=== PATIENT | female | born 1940 | race Caucasian/White ===

== ENCOUNTER → 2017-10-31 | Outpatient (CLI) | payer OTHER ==
[~2017-10-31] MED LIST: ACET325; ACET325 PO; ASCO500 PO; ASPI325EC PO; ATEN50 PO; ATOR40TA PO; Aspirin EC81 MG PO; Augmentin 875-1 EACH PO; CHOL10002 PO; CITA20 PO; CLOP75 PO; DECADRON0.5 MG PO; DEXA4 PO; ERGO400 PO; ESTR1; FURO20; Ferrous Sulfat325 MG PO; GABA100 PO; HORIZANT600 MG; HYDACE5 PO; HYDACE5325 PO; HYDR1TAB94 PO; IMODIUM A-D2 M1 PO; IRON18 MG PO; ISOMON20 PO; Klonopin0.5 MG PO; LEVSOD50 PO; LIDO700A20 TOP; LISI20; LISI5 PO; LOSA50 PO; LOSARTAN-HCTZ; LOSARTAN-HCTZ1 EAC1 PO; LOSARTAN-HCTZ1 EACH PO; MAGNESIUM OXID500 MG PO; METO25ER PO; MIRAPEX ER1.5 MG PO; MULVITMINF PO; NAPR220 PO; NITR.4SL SL; OMEP20ER PO; OMEPRAZOLE MAGN20 MG PO; PARO10; POTA10T PO; POTCHL10ER PO; PRAM.125; PRAM.5 PO; PRAV20 PO; ROPI5 PO; SENN187 PO; SPIR25 PO; SPIR50 PO; SYNTHROID0.2 MG PO; TORSE20 PO; Velcade3.5 MG INJ; Vitamin C100 M1 PO; Vitamin C1000 M1 PO; [UNRECOGNIZED DRUG - OTHER] PO
== END ==
LOC: LAB EV 12:53
DX: R30.0 Dysuria (principal)
CPT/HCPCS: 87077; 87086; 87186

== ENCOUNTER 2018-01-25 13:03 | Emergency (ER) | payer OTHER ==
[~2018-01-25] VITALS: Ht 165.1 cm; Wt 72.6 kg
[~2018-01-25 13:03] MED LIST changes: -ATOR40TA PO; -Aspirin EC81 MG PO; -CLOP75 PO; -DECADRON0.5 MG PO; -DEXA4 PO; -FURO20; -Ferrous Sulfat325 MG PO; -GABA100 PO; -IMODIUM A-D2 M1 PO; -ISOMON20 PO; -Klonopin0.5 MG PO; -MAGNESIUM OXID500 MG PO; -NITR.4SL SL; +OMEPRAZOLE MAGN20 MG; -OMEPRAZOLE MAGN20 MG PO; -POTA10T PO; -Velcade3.5 MG INJ; -Vitamin C100 M1 PO; -[UNRECOGNIZED DRUG - OTHER] PO
[2018-01-25 13:49] LABS: BASOPHILS ABSOLUTE AUTO 0.01 K/mm3 (0.00-0.23); BASOPHILS PERCENT AUTO 0 % (0-2); EOSINOPHILS ABSOLUTE AUTO 0.01 K/mm3 (0.00-0.68); EOSINOPHILS PERCENT AUTO 0 % (0-6); Hematocrit 29.9 % (33.0-51.0); Hemoglobin 9.2 g/dL (11.5-16.0); IMMATURE GRAN PERCENT AUTO 0 % (0-1); LYMPHOCYTES ABSOLUTE AUTO 0.81 K/mm3 (0.84-5.20); LYMPHOCYTES PERCENT AUTO 20 % (21-46); MONOCYTES ABSOLUTE AUTO 0.42 K/mm3 (0.16-1.47); MONOCYTES PERCENT AUTO 10 % (4-13); Mean Corpuscular HGB 30.3 pg (26.0-34.0); Mean Corpuscular HGB Conc 30.8 g/dL (31.5-36.5); Mean Corpuscular Volume 98 fL (80-100); Mean Platelet Volume 9.4 fL (9.1-12.4); NEUTROPHILS ABSOLUTE AUTO 2.89 K/mm3 (1.96-9.15); NEUTROPHILS PERCENT AUTO 70 % (41-73); Platelet Count 138 K/mm3 (150-400); RDW Coefficient Variation 15.1 % (11.7-14.2); RDW Standard Deviation 53.1 fL (35.1-46.3); Red Blood Cell Count 3.04 M/mm3 (3.80-5.20); White Blood Cell Count 4.14 K/mm3 (4.00-11.30)
[2018-01-25 14:00] LABS: International Normalized Ratio 1.05; Prothrombin Time Results 10.9 Sec (9.7-11.5)
[2018-01-25 14:13] LABS: Alanine Aminotransfer (ALT/SGP 29 U/L (12-78); Albumin, Blood 3.5 g/dL (3.4-5.0); Albumin/Globulin Ratio 0.8 (0.8-1.8); Alk Phos 74 U/L (50-136); Anion Gap 4 mmol/L (6-16); Aspartate Aminotrans (AST/SGOT 24 U/L (12-37); Bilirubin, Total 0.3 mg/dL (0.1-1.0); Blood Urea Nitrogen 36 mg/dL (8-24); Bun/Creatinine Ratio 27.7 (12.0-20.0); CO2, Blood 28 mmol/L (21-32); Calcium, Blood 8.7 mg/dL (8.5-10.1); Chloride, Blood 111 mmol/L (98-108); Globulin, Blood 4.5 g/dL (2.2-4.0); Glomerular Filtration Rate 42 (60-); Glucose, Blood 121 mg/dL (70-99); Potassium, Blood 3.7 mmol/L (3.5-5.5); Sodium, Blood 143 mmol/L (136-145); Troponin I <0.015 ng/mL (0.000-0.040)
== END 2018-01-25 16:45 | disposition home or self-care (01) ==
LOC: ER 13:03
PROVIDERS: Emergency Medicine
DX: I25.10 Atherosclerotic heart disease of native coronary artery without angina pectoris (principal); I10 Essential (primary) hypertension; G47.30 Sleep apnea, unspecified; G25.81 Restless legs syndrome; I49.3 Ventricular premature depolarization; Z79.82 Long term (current) use of aspirin; Z79.899 Other long term (current) drug therapy; Z90.710 Acquired absence of both cervix and uterus; Z95.1 Presence of aortocoronary bypass graft; Z98.1 Arthrodesis status; Z98.890 Other specified postprocedural states
CPT/HCPCS: 36415; 71045; 80053; 83880; 84484; 85025; 85610; 85730; 93005; 93010; 96374; 99284; C9113

== ENCOUNTER → 2018-02-15 | Outpatient (CLI) | payer OTHER | END | disposition home or self-care (01) | LOC: LAB SHORT 10:10 → PLD 10:10 | DX: L70.0 Acne vulgaris (principal); B07.9 Viral wart, unspecified | CPT/HCPCS: 88305 ==

== ENCOUNTER 2018-04-18 00:39 | Emergency (ER) | payer OTHER ==
[~2018-04-18] VITALS: Ht 154.9 cm; Wt 71.7 kg
[2018-04-18 02:09] LABS: BASOPHILS ABSOLUTE AUTO 0.01 K/mm3 (0.00-0.23); BASOPHILS PERCENT AUTO 0 % (0-2); EOSINOPHILS PERCENT AUTO 0 % (0-6); IMMATURE GRAN ABSOLUTE AUTO 0.01 K/mm3 (0.00-0.10); IMMATURE GRAN PERCENT AUTO 0 % (0-1); LYMPHOCYTES ABSOLUTE AUTO 0.85 K/mm3 (0.84-5.20); LYMPHOCYTES PERCENT AUTO 28 % (21-46); MONOCYTES ABSOLUTE AUTO 0.45 K/mm3 (0.16-1.47); MONOCYTES PERCENT AUTO 15 % (4-13); Mean Corpuscular HGB 32.3 pg (26.0-34.0); Mean Corpuscular Volume 104 fL (80-100); NEUTROPHILS ABSOLUTE AUTO 1.72 K/mm3 (1.96-9.15); NEUTROPHILS PERCENT AUTO 57 % (41-73); Platelet Count 157 K/mm3 (150-400); RDW Coefficient Variation 15.3 % (11.7-14.2); RDW Standard Deviation 58.4 fL (35.1-46.3); Red Blood Cell Count 2.79 M/mm3 (3.80-5.20); White Blood Cell Count 3.04 K/mm3 (4.00-11.30)
[2018-04-18 02:23] LABS: Alanine Aminotransfer (ALT/SGP 24 U/L (12-78); Albumin, Blood 3.5 g/dL (3.4-5.0); Albumin/Globulin Ratio 0.9 (0.8-1.8); Alk Phos 83 U/L (50-136); Anion Gap 6 mmol/L (6-16); Aspartate Aminotrans (AST/SGOT 20 U/L (12-37); Bilirubin, Total 0.2 mg/dL (0.1-1.0); Blood Urea Nitrogen 39 mg/dL (8-24); Bun/Creatinine Ratio 25.8 (12.0-20.0); CO2, Blood 28 mmol/L (21-32); Calcium, Blood 8.5 mg/dL (8.5-10.1); Chloride, Blood 109 mmol/L (98-108); Creatinine, Blood 1.51 mg/dL (0.40-1.00); Globulin, Blood 4.1 g/dL (2.2-4.0); Glomerular Filtration Rate 35 (60-); Glucose, Blood 97 mg/dL (70-99); Potassium, Blood 4.2 mmol/L (3.5-5.5); Sodium, Blood 143 mmol/L (136-145); Total Protein, Blood 7.6 g/dL (6.4-8.2); Troponin I <0.015 ng/mL (0.000-0.040)
== END 2018-04-18 03:35 | disposition home or self-care (01) ==
LOC: ER 00:39
PROVIDERS: Emergency Medicine
DX: I12.9 Hypertensive chronic kidney disease with stage 1 through stage 4 chronic kidney disease, or unspecified chronic kidney disease (principal); N18.9 Chronic kidney disease, unspecified; D53.9 Nutritional anemia, unspecified; Z79.899 Other long term (current) drug therapy; Z79.82 Long term (current) use of aspirin
CPT/HCPCS: 36415; 71046; 80053; 83880; 84484; 85025; 93005; 93010; 99284

== ENCOUNTER 2018-06-12 05:49 | Inpatient (IN) | payer OTHER ==
[~2018-06-12] VITALS: Ht 162.6 cm; Wt 74.4 kg
[~2018-06-12 05:49] MED LIST changes: -OMEPRAZOLE MAGN20 MG; +OMEPRAZOLE MAGN20 MG PO
[2018-06-12] MEDS ORDERED: GABA100 PO (06:03)
[2018-06-12] MEDS ORDERED: DECADRON0.5 MG PO (06:04)
[2018-06-12 06:08] LABS: BASOPHILS PERCENT AUTO 0 % (0-2); EOSINOPHILS PERCENT AUTO 0 % (0-6); Hematocrit 25.2 % (33.0-51.0); Hemoglobin 7.6 g/dL (11.5-16.0); IMMATURE GRAN ABSOLUTE AUTO 0.02 K/mm3 (0.00-0.10); IMMATURE GRAN PERCENT AUTO 0 % (0-1); LYMPHOCYTES ABSOLUTE AUTO 0.45 K/mm3 (0.84-5.20); LYMPHOCYTES PERCENT AUTO 9 % (21-46); MONOCYTES ABSOLUTE AUTO 0.25 K/mm3 (0.16-1.47); MONOCYTES PERCENT AUTO 5 % (4-13); Mean Corpuscular HGB 31.7 pg (26.0-34.0); Mean Corpuscular HGB Conc 30.2 g/dL (31.5-36.5); Mean Corpuscular Volume 105 fL (80-100); NEUTROPHILS ABSOLUTE AUTO 4.24 K/mm3 (1.96-9.15); NEUTROPHILS PERCENT AUTO 86 % (41-73); Platelet Count 149 K/mm3 (150-400); RDW Coefficient Variation 16.5 % (11.7-14.2); RDW Standard Deviation 63.3 fL (35.1-46.3); White Blood Cell Count 4.96 K/mm3 (4.00-11.30)
[2018-06-12 06:28] LABS: Alanine Aminotransfer (ALT/SGP 25 U/L (12-78); Albumin, Blood 3.3 g/dL (3.4-5.0); Albumin/Globulin Ratio 0.8 (0.8-1.8); Alk Phos 80 U/L (50-136); Anion Gap 10 mmol/L (6-16); Aspartate Aminotrans (AST/SGOT 24 U/L (12-37); Bilirubin, Total 0.2 mg/dL (0.1-1.0); Blood Urea Nitrogen 51 mg/dL (8-24); Bun/Creatinine Ratio 44.7 (12.0-20.0); CO2, Blood 21 mmol/L (21-32); Calcium, Blood 8.6 mg/dL (8.5-10.1); Chloride, Blood 112 mmol/L (98-108); Creatinine, Blood 1.14 mg/dL (0.40-1.00); Globulin, Blood 4.4 g/dL (2.2-4.0); Glomerular Filtration Rate 49 (60-); Glucose, Blood 183 mg/dL (70-99); Sodium, Blood 143 mmol/L (136-145); Total Protein, Blood 7.7 g/dL (6.4-8.2); Troponin I <0.015 ng/mL (0.000-0.040)
[2018-06-12] MEDS ORDERED: Aspirin EC81 MG PO (10:12)
[2018-06-12] MEDS ORDERED: Klonopin0.5 MG PO (10:15)
[2018-06-12] MEDS ORDERED: Ferrous Sulfat325 MG PO (10:16)
[2018-06-12] MEDS ORDERED: IMODIUM A-D2 M1 PO (10:17)
[2018-06-12] MEDS ORDERED: DEXA4 PO (10:23)
[2018-06-12] MEDS ORDERED: Velcade3.5 MG INJ (10:24)
[2018-06-12 16:55] LABS: BASOPHILS PERCENT AUTO 0 % (0-2); EOSINOPHILS PERCENT AUTO 0 % (0-6); Hematocrit 23.6 % (33.0-51.0); Hemoglobin 7.5 g/dL (11.5-16.0); IMMATURE GRAN ABSOLUTE AUTO 0.03 K/mm3 (0.00-0.10); IMMATURE GRAN PERCENT AUTO 0 % (0-1); LYMPHOCYTES ABSOLUTE AUTO 0.64 K/mm3 (0.84-5.20); LYMPHOCYTES PERCENT AUTO 8 % (21-46); MONOCYTES ABSOLUTE AUTO 0.97 K/mm3 (0.16-1.47); MONOCYTES PERCENT AUTO 11 % (4-13); Mean Corpuscular HGB 32.5 pg (26.0-34.0); Mean Corpuscular HGB Conc 31.8 g/dL (31.5-36.5); Mean Platelet Volume 10.4 fL (9.1-12.4); NEUTROPHILS ABSOLUTE AUTO 6.89 K/mm3 (1.96-9.15); NEUTROPHILS PERCENT AUTO 81 % (41-73); Platelet Count 127 K/mm3 (150-400); RDW Coefficient Variation 17.4 % (11.7-14.2); RDW Standard Deviation 64.7 fL (35.1-46.3); Red Blood Cell Count 2.31 M/mm3 (3.80-5.20); White Blood Cell Count 8.53 K/mm3 (4.00-11.30)
[2018-06-12 16:56] LABS: Mean Corpuscular Volume 102 fL (80-100)
[2018-06-12 18:55] LABS: International Normalized Ratio 1.06; Prothrombin Time Results 10.9 Sec (9.7-11.5)
[2018-06-13 00:53] LABS: BASOPHILS ABSOLUTE AUTO 0.01 K/mm3 (0.00-0.23); BASOPHILS PERCENT AUTO 0 % (0-2); EOSINOPHILS PERCENT AUTO 0 % (0-6); Hematocrit 24.1 % (33.0-51.0); Hemoglobin 7.8 g/dL (11.5-16.0); IMMATURE GRAN ABSOLUTE AUTO 0.03 K/mm3 (0.00-0.10); IMMATURE GRAN PERCENT AUTO 0 % (0-1); LYMPHOCYTES ABSOLUTE AUTO 1.06 K/mm3 (0.84-5.20); LYMPHOCYTES PERCENT AUTO 14 % (21-46); MONOCYTES ABSOLUTE AUTO 0.75 K/mm3 (0.16-1.47); MONOCYTES PERCENT AUTO 10 % (4-13); Mean Corpuscular HGB 31.2 pg (26.0-34.0); Mean Corpuscular HGB Conc 32.4 g/dL (31.5-36.5); Mean Corpuscular Volume 96 fL (80-100); Mean Platelet Volume 9.5 fL (9.1-12.4); NEUTROPHILS ABSOLUTE AUTO 5.62 K/mm3 (1.96-9.15); NEUTROPHILS PERCENT AUTO 75 % (41-73); Platelet Count 104 K/mm3 (150-400); RDW Coefficient Variation 18.8 % (11.7-14.2); RDW Standard Deviation 66.4 fL (35.1-46.3); White Blood Cell Count 7.47 K/mm3 (4.00-11.30)
[2018-06-13 01:17] LABS: Albumin, Blood 2.6 g/dL (3.4-5.0); Albumin/Globulin Ratio 0.8 (0.8-1.8); Bilirubin, Total 1.1 mg/dL (0.1-1.0); Calcium, Blood 7.8 mg/dL (8.5-10.1); Creatinine, Blood 1.34 mg/dL (0.40-1.00); Globulin, Blood 3.3 g/dL (2.2-4.0); Total Protein, Blood 5.9 g/dL (6.4-8.2)
[2018-06-13 01:22] LABS: Troponin I 1.6 ng/mL (0.000-0.040)
[2018-06-13 07:10] LABS: BASOPHILS ABSOLUTE AUTO 0.01 K/mm3 (0.00-0.23); BASOPHILS PERCENT AUTO 0 % (0-2); EOSINOPHILS PERCENT AUTO 0 % (0-6); Hemoglobin 9.9 g/dL (11.5-16.0); IMMATURE GRAN ABSOLUTE AUTO 0.03 K/mm3 (0.00-0.10); IMMATURE GRAN PERCENT AUTO 0 % (0-1); LYMPHOCYTES ABSOLUTE AUTO 1.27 K/mm3 (0.84-5.20); LYMPHOCYTES PERCENT AUTO 18 % (21-46); MONOCYTES ABSOLUTE AUTO 0.57 K/mm3 (0.16-1.47); MONOCYTES PERCENT AUTO 8 % (4-13); Mean Corpuscular HGB 31.5 pg (26.0-34.0); Mean Corpuscular Volume 96 fL (80-100); Mean Platelet Volume 11.2 fL (9.1-12.4); NEUTROPHILS PERCENT AUTO 74 % (41-73); Platelet Count 133 K/mm3 (150-400); RDW Coefficient Variation 18.6 % (11.7-14.2); RDW Standard Deviation 65.1 fL (35.1-46.3); Red Blood Cell Count 3.14 M/mm3 (3.80-5.20); White Blood Cell Count 7.08 K/mm3 (4.00-11.30)
[2018-06-13 08:09] LABS: Bun/Creatinine Ratio 38.7 (12.0-20.0); Creatinine, Blood 1.24 mg/dL (0.40-1.00); Potassium, Blood 3.8 mmol/L (3.5-5.5)
[2018-06-13 14:21] LABS: Hematocrit 30.9 % (33.0-51.0); Hemoglobin 10.1 g/dL (11.5-16.0)
[2018-06-14 04:30] LABS: BASOPHILS ABSOLUTE AUTO 0.01 K/mm3 (0.00-0.23); BASOPHILS PERCENT AUTO 0 % (0-2); EOSINOPHILS PERCENT AUTO 0 % (0-6); Hematocrit 29.6 % (33.0-51.0); Hemoglobin 9.6 g/dL (11.5-16.0); IMMATURE GRAN ABSOLUTE AUTO 0.01 K/mm3 (0.00-0.10); IMMATURE GRAN PERCENT AUTO 0 % (0-1); LYMPHOCYTES ABSOLUTE AUTO 1.08 K/mm3 (0.84-5.20); LYMPHOCYTES PERCENT AUTO 21 % (21-46); MONOCYTES ABSOLUTE AUTO 0.66 K/mm3 (0.16-1.47); MONOCYTES PERCENT AUTO 13 % (4-13); Mean Corpuscular HGB 31.4 pg (26.0-34.0); Mean Corpuscular HGB Conc 32.4 g/dL (31.5-36.5); Mean Corpuscular Volume 97 fL (80-100); Mean Platelet Volume 10.3 fL (9.1-12.4); NEUTROPHILS ABSOLUTE AUTO 3.46 K/mm3 (1.96-9.15); NEUTROPHILS PERCENT AUTO 66 % (41-73); Platelet Count 109 K/mm3 (150-400); RDW Coefficient Variation 17.8 % (11.7-14.2); RDW Standard Deviation 63.2 fL (35.1-46.3); Red Blood Cell Count 3.06 M/mm3 (3.80-5.20); White Blood Cell Count 5.22 K/mm3 (4.00-11.30)
[2018-06-14 04:54] LABS: Bun/Creatinine Ratio 27.3 (12.0-20.0); Calcium, Blood 7.8 mg/dL (8.5-10.1); Creatinine, Blood 1.32 mg/dL (0.40-1.00); Potassium, Blood 4.1 mmol/L (3.5-5.5)
[2018-06-14 05:05] LABS: Troponin I 0.918 ng/mL (0.000-0.040)
[2018-06-14 09:06] LABS: Stool Occult Blood Guaiac 1 Pos (Neg)
[2018-06-14 09:12] LABS: Stool Occult Blood Guaiac 2 Pos (Neg)
[2018-06-14 10:36] LABS: Stool Occult Blood Guaiac 1 Pos (Neg)
[2018-06-14 10:37] LABS: Stool Occult Blood Guaiac 2 Pos (Neg); Stool Occult Blood Guaiac 3 Pos (Neg)
[2018-06-14] MEDS ORDERED: ACET325 PO (14:55)
[2018-06-14] MEDS ORDERED: NITR.4SL SL (14:56)
== END 2018-06-14 15:41 | disposition home or self-care (01) | DRG 378 ==
LOC: ER 05:49 → PCU 07:48
PROVIDERS: Emergency Medicine; Family Medicine; Internal Medicine; Internal Medicine Gastroenterology; Nurse Practitioner Acute Care
PROC: 30233N1 Transfusion of Nonautologous Red Blood Cells into Peripheral Vein, Percutaneous Approach (ICD-10-PCS; 2018-06-12)
PROC: 0W3P8ZZ Control Bleeding in Gastrointestinal Tract, Via Natural or Artificial Opening Endoscopic (ICD-10-PCS; principal; 2018-06-13 13:30)
DX: K31.811 Angiodysplasia of stomach and duodenum with bleeding (principal); C90.00 Multiple myeloma not having achieved remission; I25.119 Atherosclerotic heart disease of native coronary artery with unspecified angina pectoris; D63.0 Anemia in neoplastic disease; D46.9 Myelodysplastic syndrome, unspecified; I12.9 Hypertensive chronic kidney disease with stage 1 through stage 4 chronic kidney disease, or unspecified chronic kidney disease; N18.3 Chronic kidney disease, stage 3 (moderate); K22.8 Other specified diseases of esophagus; I35.0 Nonrheumatic aortic (valve) stenosis; I48.0 Paroxysmal atrial fibrillation; E78.5 Hyperlipidemia, unspecified; G25.81 Restless legs syndrome; G47.33 Obstructive sleep apnea (adult) (pediatric); I25.2 Old myocardial infarction; Z86.74 Personal history of sudden cardiac arrest; Z79.1 Long term (current) use of non-steroidal anti-inflammatories (NSAID); Z79.82 Long term (current) use of aspirin; Z79.899 Other long term (current) drug therapy
CPT/HCPCS: 36415; 36430; 71046; 80048; 80053; 82272; 84484; 85014; 85018; 85025; 85610; 86850; 86900; 86901; 86922; 93005; 93010; 94762; 99285-25; C1751; C9113; J7120; P9016

== ENCOUNTER 2018-07-03 07:19 | Inpatient (IN) | payer OTHER ==
[~2018-07-03] VITALS: Ht 157.5 cm; Wt 78.8 kg
[~2018-07-03 07:19] MED LIST changes: +Aspirin EC81 MG PO; +DECADRON0.5 MG PO; +DEXA4 PO; +Ferrous Sulfat325 MG PO; +GABA100 PO; +IMODIUM A-D2 M1 PO; +Klonopin0.5 MG PO; +NITR.4SL SL; +Velcade3.5 MG INJ
[2018-07-03 07:52] LABS: BASOPHILS ABSOLUTE AUTO 0.01 K/mm3 (0.00-0.23); BASOPHILS PERCENT AUTO 0 % (0-2); EOSINOPHILS PERCENT AUTO 0 % (0-6); Hematocrit 30.2 % (33.0-51.0); Hemoglobin 9.3 g/dL (11.5-16.0); IMMATURE GRAN ABSOLUTE AUTO 0.08 K/mm3 (0.00-0.10); IMMATURE GRAN PERCENT AUTO 1 % (0-1); LYMPHOCYTES ABSOLUTE AUTO 0.57 K/mm3 (0.84-5.20); LYMPHOCYTES PERCENT AUTO 8 % (21-46); MONOCYTES ABSOLUTE AUTO 0.28 K/mm3 (0.16-1.47); MONOCYTES PERCENT AUTO 4 % (4-13); Mean Corpuscular HGB 31.5 pg (26.0-34.0); Mean Corpuscular HGB Conc 30.8 g/dL (31.5-36.5); Mean Corpuscular Volume 102 fL (80-100); Mean Platelet Volume 10.4 fL (9.1-12.4); NEUTROPHILS ABSOLUTE AUTO 6.09 K/mm3 (1.96-9.15); NEUTROPHILS PERCENT AUTO 87 % (41-73); Platelet Count 170 K/mm3 (150-400); RDW Coefficient Variation 16.8 % (11.7-14.2); RDW Standard Deviation 60.6 fL (35.1-46.3); Red Blood Cell Count 2.95 M/mm3 (3.80-5.20); White Blood Cell Count 7.03 K/mm3 (4.00-11.30)
[2018-07-03] MEDS ORDERED: Vitamin C100 M1 PO (07:55)
[2018-07-03] MEDS ORDERED: DEXA4 PO (07:55)
[2018-07-03 08:16] LABS: Troponin I <0.015 ng/mL (0.000-0.040)
[2018-07-03 08:19] LABS: Alanine Aminotransfer (ALT/SGP 38 U/L (12-78); Albumin, Blood 3.6 g/dL (3.4-5.0); Albumin/Globulin Ratio 0.9 (0.8-1.8); Alk Phos 109 U/L (50-136); Anion Gap 9 mmol/L (6-16); Aspartate Aminotrans (AST/SGOT 33 U/L (12-37); Bilirubin, Total 0.4 mg/dL (0.1-1.0); Blood Urea Nitrogen 50 mg/dL (8-24); CO2, Blood 24 mmol/L (21-32); Calcium, Blood 8.8 mg/dL (8.5-10.1); Chloride, Blood 111 mmol/L (98-108); Creatinine, Blood 1.35 mg/dL (0.40-1.00); Globulin, Blood 4.2 g/dL (2.2-4.0); Glomerular Filtration Rate 40 (60-); Glucose, Blood 204 mg/dL (70-99); Potassium, Blood 3.5 mmol/L (3.5-5.5); Sodium, Blood 144 mmol/L (136-145); Total Protein, Blood 7.8 g/dL (6.4-8.2)
[2018-07-03] MEDS ORDERED: [UNRECOGNIZED DRUG - OTHER] PO (10:23)
[2018-07-04 06:17] LABS: BASOPHILS PERCENT AUTO 0 % (0-2); EOSINOPHILS PERCENT AUTO 0 % (0-6); Hematocrit 24.4 % (33.0-51.0); Hemoglobin 7.5 g/dL (11.5-16.0); IMMATURE GRAN ABSOLUTE AUTO 0.04 K/mm3 (0.00-0.10); IMMATURE GRAN PERCENT AUTO 1 % (0-1); LYMPHOCYTES ABSOLUTE AUTO 1.12 K/mm3 (0.84-5.20); LYMPHOCYTES PERCENT AUTO 14 % (21-46); MONOCYTES ABSOLUTE AUTO 0.64 K/mm3 (0.16-1.47); MONOCYTES PERCENT AUTO 8 % (4-13); Mean Corpuscular HGB 31.1 pg (26.0-34.0); Mean Corpuscular HGB Conc 30.7 g/dL (31.5-36.5); Mean Corpuscular Volume 101 fL (80-100); Mean Platelet Volume 10.3 fL (9.1-12.4); NEUTROPHILS PERCENT AUTO 78 % (41-73); Platelet Count 134 K/mm3 (150-400); RDW Coefficient Variation 16.8 % (11.7-14.2); RDW Standard Deviation 61.1 fL (35.1-46.3); Red Blood Cell Count 2.41 M/mm3 (3.80-5.20)
[2018-07-04 06:40] LABS: Anion Gap 7 mmol/L (6-16); Blood Urea Nitrogen 57 mg/dL (8-24); Bun/Creatinine Ratio 38.8 (12.0-20.0); CHOL/HDL RATIO 2.6; CO2, Blood 26 mmol/L (21-32); Calcium, Blood 7.8 mg/dL (8.5-10.1); Chloride, Blood 112 mmol/L (98-108); Cholesterol 128 mg/dL (50-200); Creatinine, Blood 1.47 mg/dL (0.40-1.00); Glomerular Filtration Rate 36 (60-); Glucose, Blood 90 mg/dL (70-99); HDL Cholesterol 49 mg/dL (>39); LDL/HDL RATIO 1.4; Low Density Lipoprotein Chol 69 mg/dL (0-110); Potassium, Blood 3.9 mmol/L (3.5-5.5); Sodium, Blood 145 mmol/L (136-145); Triglycerides 52 mg/dL (30-160); Very Low Density Lipoprot Chol 10 mg/dL (6-32)
[2018-07-04 20:21] LABS: Hematocrit 35.3 % (33.0-51.0); Hemoglobin 11.1 g/dL (11.5-16.0)
== END 2018-07-05 13:15 | disposition home or self-care (01) | DRG 280 ==
LOC: ER 07:19 → PCU 09:07 → ER 09:54 → PCU 10:02
PROVIDERS: Internal Medicine; Physician Assistant
DX: I13.0 Hypertensive heart and chronic kidney disease with heart failure and stage 1 through stage 4 chronic kidney disease, or unspecified chronic kidney disease (principal); I21.4 Non-ST elevation (NSTEMI) myocardial infarction; I50.33 Acute on chronic diastolic (congestive) heart failure; D60.0 Chronic acquired pure red cell aplasia; D62 Acute posthemorrhagic anemia; Z95.1 Presence of aortocoronary bypass graft; I25.2 Old myocardial infarction; G25.81 Restless legs syndrome; E78.5 Hyperlipidemia, unspecified; D46.9 Myelodysplastic syndrome, unspecified; N18.3 Chronic kidney disease, stage 3 (moderate); G47.33 Obstructive sleep apnea (adult) (pediatric); E03.9 Hypothyroidism, unspecified; K21.9 Gastro-esophageal reflux disease without esophagitis; I25.10 Atherosclerotic heart disease of native coronary artery without angina pectoris; Q27.33 Arteriovenous malformation of digestive system vessel
CPT/HCPCS: 36415; 36430; 71045; 78452; 80048; 80053; 80061; 83880; 84484; 85014; 85018; 85025; 86850; 86870; 86900; 86901; 86922; 93005; 93010; 93017; 93308; 96374; 99285-25; A9500; J0706; J1644; J1940; J2270; J2785; P9016

== ENCOUNTER → 2018-07-29 | Outpatient (CLI) | payer OTHER ==
[~2018-07-29] MED LIST changes: +Vitamin C100 M1 PO; +[UNRECOGNIZED DRUG - OTHER] PO
[2018-07-29 11:13] LABS: BASOPHILS ABSOLUTE AUTO 0.01 K/mm3 (0.00-0.23); BASOPHILS PERCENT AUTO 0 % (0-2); EOSINOPHILS PERCENT AUTO 0 % (0-6); Hematocrit 25.5 % (33.0-51.0); Hemoglobin 8.2 g/dL (11.5-16.0); IMMATURE GRAN ABSOLUTE AUTO 0.01 K/mm3 (0.00-0.10); IMMATURE GRAN PERCENT AUTO 0 % (0-1); LYMPHOCYTES ABSOLUTE AUTO 0.35 K/mm3 (0.84-5.20); LYMPHOCYTES PERCENT AUTO 12 % (21-46); MONOCYTES ABSOLUTE AUTO 0.61 K/mm3 (0.16-1.47); MONOCYTES PERCENT AUTO 22 % (4-13); Mean Corpuscular HGB 29.6 pg (26.0-34.0); Mean Corpuscular HGB Conc 32.2 g/dL (31.5-36.5); Mean Corpuscular Volume 92 fL (80-100); Mean Platelet Volume 9.8 fL (9.1-12.4); NEUTROPHILS ABSOLUTE AUTO 1.86 K/mm3 (1.96-9.15); NEUTROPHILS PERCENT AUTO 65 % (41-73); Platelet Count 104 K/mm3 (150-400); RDW Coefficient Variation 15.5 % (11.7-14.2); RDW Standard Deviation 51.8 fL (35.1-46.3); Red Blood Cell Count 2.77 M/mm3 (3.80-5.20); White Blood Cell Count 2.84 K/mm3 (4.00-11.30)
[2018-07-29 11:23] LABS: Albumin, Blood 2.8 g/dL (3.4-5.0); Albumin/Globulin Ratio 0.8 (0.8-1.8); Bilirubin, Total 0.3 mg/dL (0.1-1.0); Bun/Creatinine Ratio 20.3 (12.0-20.0); Calcium, Blood 7.8 mg/dL (8.5-10.1); Creatinine, Blood 2.36 mg/dL (0.40-1.00); Globulin, Blood 3.4 g/dL (2.2-4.0); Potassium, Blood 3.7 mmol/L (3.5-5.5); Total Protein, Blood 6.2 g/dL (6.4-8.2)
== END | disposition home or self-care (01) ==
LOC: LAB EV 11:08 → LAB SHORT 11:08
PROVIDERS: Physician Assistant
DX: C90.00 Multiple myeloma not having achieved remission (principal); R06.02 Shortness of breath; D50.9 Iron deficiency anemia, unspecified; N18.9 Chronic kidney disease, unspecified; D63.1 Anemia in chronic kidney disease; D72.819 Decreased white blood cell count, unspecified; D63.0 Anemia in neoplastic disease
CPT/HCPCS: 80053; 83880; 85025

== ENCOUNTER 2018-07-31 13:36 | Day surgery (SDC) | payer OTHER ==
[2018-07-30 15:50] LABS: BASOPHILS ABSOLUTE AUTO 0.01 K/mm3 (0.00-0.23); BASOPHILS PERCENT AUTO 0 % (0-2); EOSINOPHILS PERCENT AUTO 0 % (0-6); Hematocrit 27.1 % (33.0-51.0); Hemoglobin 8.4 g/dL (11.5-16.0); IMMATURE GRAN PERCENT AUTO 0 % (0-1); LYMPHOCYTES ABSOLUTE AUTO 0.58 K/mm3 (0.84-5.20); LYMPHOCYTES PERCENT AUTO 21 % (21-46); MONOCYTES ABSOLUTE AUTO 0.58 K/mm3 (0.16-1.47); MONOCYTES PERCENT AUTO 21 % (4-13); Mean Corpuscular HGB 29.4 pg (26.0-34.0); NEUTROPHILS ABSOLUTE AUTO 1.55 K/mm3 (1.96-9.15); NEUTROPHILS PERCENT AUTO 57 % (41-73); Platelet Count 94 K/mm3 (150-400); RDW Coefficient Variation 15.1 % (11.7-14.2); RDW Standard Deviation 52.7 fL (35.1-46.3); Red Blood Cell Count 2.86 M/mm3 (3.80-5.20); White Blood Cell Count 2.72 K/mm3 (4.00-11.30)
[2018-07-30 15:52] LABS: Mean Corpuscular Volume 95 fL (80-100)
[2018-07-30 16:05] LABS: Albumin, Blood 2.9 g/dL (3.4-5.0); Albumin/Globulin Ratio 0.8 (0.8-1.8); Bilirubin, Total 0.3 mg/dL (0.1-1.0); Bun/Creatinine Ratio 23.8 (12.0-20.0); Calcium, Blood 8.2 mg/dL (8.5-10.1); Creatinine, Blood 2.06 mg/dL (0.40-1.00); Globulin, Blood 3.6 g/dL (2.2-4.0); Potassium, Blood 3.5 mmol/L (3.5-5.5); Total Protein, Blood 6.5 g/dL (6.4-8.2)
[2018-08-02 15:08] LABS: A/G RATIO 1.1 (0.7-1.7); ALPHA-1-GLOBULIN 0.3 g/dL (0.0-0.4); ALPHA-2-GLOBULIN 0.9 g/dL (0.4-1.0); BETA GLOBULIN 0.8 g/dL (0.7-1.3); GAMMA GLOBULIN 0.9 g/dL (0.4-1.8); GLOBULIN, TOTAL 2.9 g/dL (2.2-3.9); IMMUNOGLOBULIN A, QN, SERUM 80 mg/dL (64-422); IMMUNOGLOBULIN G, QN, SERUM 879 mg/dL (700-1600); IMMUNOGLOBULIN M, QN, SERUM 41 mg/dL (26-217); M-SPIKE 0.2 g/dL (Not Observed); PROTEIN, TOTAL, SERUM 5.9 g/dL (6.0-8.5)
== END 2018-07-31 22:41 | disposition home or self-care (01) ==
LOC: ATC 13:36 → EDSTATUS 07-30 12:35 → LAB FUT 07-30 12:35
PROVIDERS: Internal Medicine Hematology & Oncology
DX: C90.00 Multiple myeloma not having achieved remission (principal); D63.1 Anemia in chronic kidney disease; N18.9 Chronic kidney disease, unspecified; I12.9 Hypertensive chronic kidney disease with stage 1 through stage 4 chronic kidney disease, or unspecified chronic kidney disease; D72.819 Decreased white blood cell count, unspecified
CPT/HCPCS: 36415; 36430; 80053; 82784; 84165; 85025; 86334; 86850; 86900; 86901; 86922; J7050; P9016

== ENCOUNTER 2018-08-04 13:46 | Emergency (ER) | payer OTHER ==
[~2018-08-04] VITALS: Ht 160 cm; Wt 78.9 kg
[2018-08-04 14:48] LABS: BASOPHILS ABSOLUTE AUTO 0.01 K/mm3 (0.00-0.23); BASOPHILS PERCENT AUTO 0 % (0-2); EOSINOPHILS PERCENT AUTO 0 % (0-6); Hematocrit 28.7 % (33.0-51.0); Hemoglobin 9.2 g/dL (11.5-16.0); IMMATURE GRAN ABSOLUTE AUTO 0.01 K/mm3 (0.00-0.10); IMMATURE GRAN PERCENT AUTO 0 % (0-1); LYMPHOCYTES ABSOLUTE AUTO 0.62 K/mm3 (0.84-5.20); LYMPHOCYTES PERCENT AUTO 20 % (21-46); MONOCYTES ABSOLUTE AUTO 0.74 K/mm3 (0.16-1.47); MONOCYTES PERCENT AUTO 23 % (4-13); Mean Corpuscular HGB 29.1 pg (26.0-34.0); Mean Corpuscular HGB Conc 32.1 g/dL (31.5-36.5); Mean Corpuscular Volume 91 fL (80-100); Mean Platelet Volume 10.9 fL (9.1-12.4); NEUTROPHILS ABSOLUTE AUTO 1.78 K/mm3 (1.96-9.15); NEUTROPHILS PERCENT AUTO 56 % (41-73); Platelet Count 144 K/mm3 (150-400); RDW Coefficient Variation 14.9 % (11.7-14.2); Red Blood Cell Count 3.16 M/mm3 (3.80-5.20); White Blood Cell Count 3.16 K/mm3 (4.00-11.30)
[2018-08-04] MEDS ORDERED: ATOR40TA PO (14:51)
[2018-08-04] MEDS ORDERED: CLOP75 PO (14:52)
[2018-08-04] MEDS ORDERED: ISOMON20 PO (14:52)
[2018-08-04 14:54] LABS: Alanine Aminotransfer (ALT/SGP 24 U/L (12-78); Albumin, Blood 2.8 g/dL (3.4-5.0); Albumin/Globulin Ratio 0.8 (0.8-1.8); Alk Phos 66 U/L (50-136); Anion Gap 9 mmol/L (6-16); Aspartate Aminotrans (AST/SGOT 21 U/L (12-37); Bilirubin, Total 0.4 mg/dL (0.1-1.0); Blood Urea Nitrogen 56 mg/dL (8-24); Bun/Creatinine Ratio 22.6 (12.0-20.0); CO2, Blood 29 mmol/L (21-32); Calcium, Blood 7.1 mg/dL (8.5-10.1); Chloride, Blood 99 mmol/L (98-108); Creatinine, Blood 2.48 mg/dL (0.40-1.00); Globulin, Blood 3.6 g/dL (2.2-4.0); Glomerular Filtration Rate 20 (60-); Glucose, Blood 99 mg/dL (70-99); Potassium, Blood 3.3 mmol/L (3.5-5.5); Sodium, Blood 137 mmol/L (136-145); Total Protein, Blood 6.4 g/dL (6.4-8.2); Troponin I <0.015 ng/mL (0.000-0.040)
[2018-08-04] MEDS ORDERED: FURO20 (15:52)
[2018-08-04] MEDS ORDERED: Augmentin 875-1 EACH PO (15:53)
== END 2018-08-04 16:15 | disposition home or self-care (01) ==
LOC: ER 13:46
PROVIDERS: Internal Medicine
DX: L03.115 Cellulitis of right lower limb (principal); L03.116 Cellulitis of left lower limb; I25.10 Atherosclerotic heart disease of native coronary artery without angina pectoris; I10 Essential (primary) hypertension; D64.9 Anemia, unspecified; Z79.899 Other long term (current) drug therapy
CPT/HCPCS: 36415; 71046; 80053; 83880; 84484; 85025; 93005; 93010; 96374; 99284-25; J1940

== ENCOUNTER 2018-12-14 00:02 | Day surgery (SDC) | payer OTHER ==
[~2018-12-14 00:02] MED LIST changes: +ATOR40TA PO; +CLOP75 PO; +FURO20; +ISOMON20 PO; +MAGNESIUM OXID500 MG PO; +POTA10T PO
[2018-12-14] MEDS ORDERED: LOPE2C PO (08:38)
== END 2018-12-14 10:13 | disposition home or self-care (01) ==
LOC: ATC 00:02
DX: N18.9 Chronic kidney disease, unspecified (principal); D63.1 Anemia in chronic kidney disease; Z79.899 Other long term (current) drug therapy; I10 Essential (primary) hypertension
CPT/HCPCS: 36430; 86850; 86870; 86900; 86901; 86922; J7050; P9016

== ENCOUNTER → 2018-12-21 | Outpatient (CLI) | payer OTHER ==
[~2018-12-21] MED LIST changes: +LOPE2C PO
[2018-12-26 06:22] LABS: Stool Occult Blood Guaiac 1 Pos (Neg); Stool Occult Blood Guaiac 2 Pos (Neg)
== END | disposition home or self-care (01) ==
LOC: LAB 14:00 → LAB SHORT 14:00
PROVIDERS: Internal Medicine
DX: N18.9 Chronic kidney disease, unspecified (principal); D63.1 Anemia in chronic kidney disease
CPT/HCPCS: 82270

== ENCOUNTER 2019-01-09 18:52 | Inpatient (IN) | payer OTHER ==
[~2019-01-09] VITALS: Ht 165.1 cm; Wt 61.3 kg
[~2019-01-09 18:52] MED LIST changes: -ATOR40TA PO; -CLOP75 PO; -GABA100 PO; -ISOMON20 PO; -LOPE2C PO; -MAGNESIUM OXID500 MG PO; -METO25ER PO; -OMEPRAZOLE MAGN20 MG PO; -POTA10T PO
[2019-01-09] MEDS ORDERED: PRAM.125 PO (19:41)
[2019-01-09 19:57] LABS: BASOPHILS PERCENT AUTO 0 % (0-2); EOSINOPHILS ABSOLUTE AUTO 0.01 K/mm3 (0.00-0.68); EOSINOPHILS PERCENT AUTO 0 % (0-6); Hematocrit 20.4 % (33.0-51.0); IMMATURE GRAN ABSOLUTE AUTO 0.01 K/mm3 (0.00-0.10); IMMATURE GRAN PERCENT AUTO 0 % (0-1); LYMPHOCYTES ABSOLUTE AUTO 0.64 K/mm3 (0.84-5.20); LYMPHOCYTES PERCENT AUTO 23 % (21-46); MONOCYTES ABSOLUTE AUTO 0.43 K/mm3 (0.16-1.47); MONOCYTES PERCENT AUTO 15 % (4-13); Mean Corpuscular HGB 25.1 pg (26.0-34.0); Mean Corpuscular HGB Conc 27.9 g/dL (31.5-36.5); Mean Corpuscular Volume 90 fL (80-100); Mean Platelet Volume 9.6 fL (9.1-12.4); NEUTROPHILS ABSOLUTE AUTO 1.76 K/mm3 (1.96-9.15); NEUTROPHILS PERCENT AUTO 62 % (41-73); Platelet Count 154 K/mm3 (150-400); RDW Coefficient Variation 17.3 % (11.7-14.2); RDW Standard Deviation 56.6 fL (35.1-46.3); Red Blood Cell Count 2.27 M/mm3 (3.80-5.20); White Blood Cell Count 2.85 K/mm3 (4.00-11.30)
[2019-01-09 20:00] LABS: Calcium, Ionized (POC) 1.13 mmol/L (1.10-1.46); Chloride (POC) 101 mmol/L (98-108); Creatinine (POC) 1.3 mg/dL (0.6-1.0); Glucose (ISTAT POC) 129 mg/dL (70-99); Hemoglobin (POC) 6.1 g/dL (12.0-16.0); Potassium (POC) 3.5 mmol/L (3.5-5.5); Sodium (POC) 142 mmol/L (135-148); Total CO2 (POC) 27 mmol/L (21-32)
[2019-01-09 20:09] LABS: Hemoglobin 5.7 g/dL (11.5-16.0)
[2019-01-09 20:28] LABS: Albumin, Blood 3.4 g/dL (3.4-5.0); Albumin/Globulin Ratio 0.9 (0.8-1.8); Bilirubin, Total 0.4 mg/dL (0.1-1.0); Bun/Creatinine Ratio 21.6 (12.0-20.0); Calcium, Blood 8.4 mg/dL (8.5-10.1); Creatinine, Blood 1.11 mg/dL (0.40-1.00); Globulin, Blood 3.9 g/dL (2.2-4.0); Potassium, Blood 3.2 mmol/L (3.5-5.5); Total Protein, Blood 7.3 g/dL (6.4-8.2)
[2019-01-09] MEDS ORDERED: CLOP75 PO (21:47)
[2019-01-09] MEDS ORDERED: ATOR40TA PO (21:47)
[2019-01-09 21:48] LABS: IMMATURE RETIC FRACTION 15.4 % (2.3-16.0); RETIC HGB EQUIVALENT 21.8 pg (28.20-36.60); RETICULOCYTE COUNT PERCENT 1.57 % (0.50-2.50)
[2019-01-09] MEDS ORDERED: GABA100 PO (21:49)
[2019-01-09] MEDS ORDERED: Isosorbide Mono30 MG PO (21:50)
[2019-01-09] MEDS ORDERED: LEVSOD50 PO (21:50)
[2019-01-09] MEDS ORDERED: LOPE2C PO (21:51)
[2019-01-09] MEDS ORDERED: MAGNESIUM OXID500 MG PO (21:51)
[2019-01-09] MEDS ORDERED: Lopressor 25 mg25 MG PO (21:53)
[2019-01-09] MEDS ORDERED: OMEPRAZOLE MAGN20 MG PO (21:54)
[2019-01-09] MEDS ORDERED: POTA10T PO (21:54)
[2019-01-09] MEDS ORDERED: Mirapex1.5 MG PO (21:56)
[2019-01-09] MEDS ORDERED: TORSE20 PO (21:57)
[2019-01-09] MEDS ORDERED: Celexa10 MG PO (21:58)
[2019-01-09 22:02] LABS: Percent Saturation 5.3 % (15.0-50.0)
[2019-01-09] MEDS ORDERED: Ferrous Sulfat325 M2 PO (22:02)
[2019-01-09] MEDS ORDERED: VITAMIN C125 MG PO (22:02)
[2019-01-09] MEDS ORDERED: HYDR1TAB94 PO (22:25)
[2019-01-10] MEDS ORDERED: [UNRECOGNIZED DRUG - OTHER] (00:12)
--- NOTE | 2019-01-10 07:35 | NUR ---
NOC SHIFT SUMMARY PT WAS ADMITTED THIS NIGHT. RECIEVED 2 UNITS OF PRBC. TOLERATED PROCEDURE WELL LUNG SOUNDS CLEAR AND VITALS SIGNS WNL. PT IS AAOX4 RESP EVEN AND UNLABORED. APPEARS IN NO ACUTE DISTRESS. REPORT TO ONCOMING RN.
[2019-01-10 07:49] LABS: BASOPHILS ABSOLUTE AUTO 0.02 K/mm3 (0.00-0.23); BASOPHILS PERCENT AUTO 1 % (0-2); EOSINOPHILS ABSOLUTE AUTO 0.01 K/mm3 (0.00-0.68); EOSINOPHILS PERCENT AUTO 0 % (0-6); Hematocrit 26.7 % (33.0-51.0); Hemoglobin 7.9 g/dL (11.5-16.0); IMMATURE GRAN ABSOLUTE AUTO 0.01 K/mm3 (0.00-0.10); IMMATURE GRAN PERCENT AUTO 0 % (0-1); LYMPHOCYTES ABSOLUTE AUTO 0.82 K/mm3 (0.84-5.20); LYMPHOCYTES PERCENT AUTO 33 % (21-46); MONOCYTES ABSOLUTE AUTO 0.33 K/mm3 (0.16-1.47); MONOCYTES PERCENT AUTO 13 % (4-13); Mean Corpuscular HGB 26.2 pg (26.0-34.0); Mean Corpuscular HGB Conc 29.6 g/dL (31.5-36.5); Mean Corpuscular Volume 88 fL (80-100); Mean Platelet Volume 10.3 fL (9.1-12.4); NEUTROPHILS ABSOLUTE AUTO 1.29 K/mm3 (1.96-9.15); NEUTROPHILS PERCENT AUTO 52 % (41-73); Platelet Count 133 K/mm3 (150-400); RDW Coefficient Variation 16.3 % (11.7-14.2); RDW Standard Deviation 52.8 fL (35.1-46.3); Red Blood Cell Count 3.02 M/mm3 (3.80-5.20); White Blood Cell Count 2.48 K/mm3 (4.00-11.30)
--- NOTE | 2019-01-10 15:27 | NUR ---
PATIENT TO PROCEDURE AT THIS TIME.
--- NOTE | 2019-01-10 15:29 | NUR ---
FROM THIRD FLOOR TO [facility] ADMISSION TO UNIT STARTED
--- NOTE | 2019-01-10 16:13 | NUR ---
01/10/19 1613 Oral Turpin Bite Block PlacedPatient to ENDO 1History, Chart, Medications and Allergies reviewed before start of procedure.MONITOR INTACT WITH CONTINUOUS PULSE OXIMETRY AND INTERMITTENT BP.O2 VIA N/C INTACT THROUGHOUT SEDATION/PROCEDURE.See Anesthesia record
--- NOTE | 2019-01-10 17:09 | NUR ---
PATIENT RETURNED TO ROOM. AWAKE, 'JUST SLEEPY.' DENIES PAIN, NAUSEA OR OTHER C/O. VSS. CONT TO MONITOR.
--- NOTE | 2019-01-10 19:15 | NUR ---
SHIFT SUMMARY SPOKE WITH DR GOLD RE: POST PROCEDURE ORDERS. REC'D NEW ORDERS. PATIENT W/O C/O THIS SHIFT. NO S/SX BLEEDING. NO SWALLOWING DIFFICULTIES NOTED. FAMILY AT BEDSIDE TODAY.
--- NOTE | 2019-01-11 03:57 | NUR ---
NO SHIFT SUMMARY PT HAS BEEN PLEASANT AND COOPERATIVE WITH CARE THIS NIGHT. NO S.S OF BLEEDING NOTED. VSS. AAOX4. RESP EVEN AND UNLABORED. ANAENLTLashae APPEARS TO BE SLEEPING RESTFULLY. APPEARS IN NO ACUTE DISTRESS. WILL CONTINUE TO MONITOR.
[2019-01-11 04:44] LABS: Hematocrit 26.6 % (33.0-51.0); Hemoglobin 7.9 g/dL (11.5-16.0)
[2019-01-11 14:03] LABS: Stool Occult Blood Guaiac 1 Pos (Neg)
[2019-01-11] MEDS ORDERED: PANT40 PO (14:53)
--- NOTE | 2019-01-11 15:00 | NUR ---
SHIFT SUMMARY PT DISCHARGED VIS [facility] TO HOME ACCOMPANIED BY AND IN NO ACUTE DISTRESS. PT AND SPOUSE VERBALIZED UNDERSTANDING OF TAKING MEDICATIONS PRESCRIBED AND FOLLOWING UP WITHIN 2 WEEKS WITH [facility].
== END 2019-01-11 15:07 | disposition home or self-care (01) | DRG 812 ==
LOC: ER 18:52 → MEDS 21:28
PROVIDERS: Internal Medicine; Nurse Practitioner Acute Care; Physician Assistant; Student in an Organized Health Care Education/Training Program; ADMIT Internal Medicine
PROC: 30233N1 Transfusion of Nonautologous Red Blood Cells into Peripheral Vein, Percutaneous Approach (ICD-10-PCS; 2019-01-10)
PROC: 0DJ08ZZ Inspection of Upper Intestinal Tract, Via Natural or Artificial Opening Endoscopic (ICD-10-PCS; principal; 2019-01-10 16:00)
DX: D62 Acute posthemorrhagic anemia (principal); I50.32 Chronic diastolic (congestive) heart failure; C90.01 Multiple myeloma in remission; I13.0 Hypertensive heart and chronic kidney disease with heart failure and stage 1 through stage 4 chronic kidney disease, or unspecified chronic kidney disease; G25.81 Restless legs syndrome; D61.818 Other pancytopenia; Z95.5 Presence of coronary angioplasty implant and graft; I25.10 Atherosclerotic heart disease of native coronary artery without angina pectoris; E03.9 Hypothyroidism, unspecified; E78.5 Hyperlipidemia, unspecified; G47.33 Obstructive sleep apnea (adult) (pediatric); I25.2 Old myocardial infarction; D46.9 Myelodysplastic syndrome, unspecified; N18.3 Chronic kidney disease, stage 3 (moderate); I48.2 Chronic atrial fibrillation; D50.9 Iron deficiency anemia, unspecified; K31.819 Angiodysplasia of stomach and duodenum without bleeding; E87.6 Hypokalemia
CPT/HCPCS: 36415; 80047; 80053; 82272; 82728; 83540; 83550; 85014; 85018; 85025; 85045; 86850; 86870; 86900; 86901; 86922; 94660; 94762; 96374; 99284-25; C9113; J7030; J7050; J7120; P9016

== ENCOUNTER 2019-02-20 12:41 | Day surgery (SDC) | payer OTHER ==
[~2019-02-20] VITALS: Ht 152.4 cm; Wt 59.6 kg
[~2019-02-20 12:41] MED LIST changes: +ARANESP INJ; +ATOR40TA PO; +CLOP75 PO; +Celexa10 MG PO; +Ferrous Sulfat325 M2 PO; +GABA100 PO; +Isosorbide Mono30 MG PO; +LOPE2C PO; +Lopressor 25 mg25 MG PO; +MAGNESIUM OXID500 MG PO; +Mirapex1.5 MG PO; +OMEPRAZOLE MAGN20 MG PO; +PANT40 PO; +POTA10T PO; +PRAM.125 PO; +VITAMIN C125 MG PO; +[UNRECOGNIZED DRUG - OTHER]
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
== END 2019-02-20 15:35 | disposition home or self-care (01) ==
LOC: ORSCSDS 12:41
PROVIDERS: Internal Medicine Gastroenterology
PROC: 0DB68ZX Excision of Stomach, Via Natural or Artificial Opening Endoscopic, Diagnostic (ICD-10-PCS; principal; 2019-02-20 14:00)
PROC: 0D568ZZ Destruction of Stomach, Via Natural or Artificial Opening Endoscopic (ICD-10-PCS; principal; 2019-02-20 14:00)
DX: K31.819 Angiodysplasia of stomach and duodenum without bleeding (principal); K44.9 Diaphragmatic hernia without obstruction or gangrene; K29.80 Duodenitis without bleeding; D50.0 Iron deficiency anemia secondary to blood loss (chronic); I25.10 Atherosclerotic heart disease of native coronary artery without angina pectoris; Z95.1 Presence of aortocoronary bypass graft; K21.9 Gastro-esophageal reflux disease without esophagitis; I10 Essential (primary) hypertension; E78.5 Hyperlipidemia, unspecified; E03.9 Hypothyroidism, unspecified; D61.818 Other pancytopenia; D46.9 Myelodysplastic syndrome, unspecified; G47.33 Obstructive sleep apnea (adult) (pediatric); Z79.899 Other long term (current) drug therapy
CPT/HCPCS: 87081; J2250; J2704; J7120

== ENCOUNTER 2019-03-22 10:01 | Day surgery (SDC) | payer OTHER | END 2019-03-22 16:29 | disposition home or self-care (01) | LOC: ATC 10:01 | DX: D50.9 Iron deficiency anemia, unspecified (principal); Z79.899 Other long term (current) drug therapy; Z79.01 Long term (current) use of anticoagulants | CPT/HCPCS: 36415; 36430; 86850; 86900; 86901; 86922; J7050; P9016 ==

== ENCOUNTER 2019-04-01 09:10 | Day surgery (SDC) | payer OTHER ==
[~2019-04-01] VITALS: Ht 154.9 cm; Wt 60.3 kg
--- NOTE | 2019-04-01 10:50 | NUR ---
04/01/19 1050 Mouna Zimmerman O2 AT 10L WITH POM MASK, CO2 THROUGH NASAL CANNULA
[2019-08-15] MEDS ORDERED: CITA20 PO (11:20)
[2019-08-15] MEDS ORDERED: Vitron-C Table1 EACH PO (11:23)
[2019-08-15] MEDS ORDERED: HYDR1TAB94 PO (11:23)
== END 2019-04-01 12:08 | disposition home or self-care (01) ==
LOC: ORSCSDS 09:10
PROVIDERS: Internal Medicine Gastroenterology
PROC: 0D568ZZ Destruction of Stomach, Via Natural or Artificial Opening Endoscopic (ICD-10-PCS; principal; 2019-04-01 10:30)
DX: K31.811 Angiodysplasia of stomach and duodenum with bleeding (principal); R19.5 Other fecal abnormalities; K44.9 Diaphragmatic hernia without obstruction or gangrene; D63.1 Anemia in chronic kidney disease; I10 Essential (primary) hypertension; I25.10 Atherosclerotic heart disease of native coronary artery without angina pectoris; G47.33 Obstructive sleep apnea (adult) (pediatric); E03.9 Hypothyroidism, unspecified; Z79.899 Other long term (current) drug therapy
CPT/HCPCS: 36415; 88305; J2704; J7120

== ENCOUNTER → 2019-04-27 | Outpatient (CLI) | payer OTHER ==
[~2019-04-27] MED LIST changes: +IRON150C; +Vitron-C Table1 EACH PO
[2019-04-30 06:07] LABS: Stool Occult Bld Immuno 1 Positive (NEGATIVE); Stool Occult Bld Immuno 2 Positive (NEGATIVE)
== END | disposition home or self-care (01) ==
LOC: LAB EV 16:25
PROVIDERS: Internal Medicine Gastroenterology
DX: D50.9 Iron deficiency anemia, unspecified (principal)
CPT/HCPCS: 82274

== ENCOUNTER 2019-05-01 12:08 | Day surgery (SDC) | payer OTHER ==
[~2019-05-01] VITALS: Ht 154.9 cm; Wt 59.7 kg
[~2019-05-01 12:08] MED LIST changes: -IRON150C; -Vitron-C Table1 EACH PO
[2019-05-01] MEDS ORDERED: IRON150C (12:56)
--- NOTE | 2019-05-01 14:13 | NUR ---
05/01/19 1413 Parvin Carty PT UPDATED MULTIPLE TIMES OF DELAY IN PREOP. PT PROVIDED WARM BLANKETS. JHONNY AT BEDSIDE.
--- NOTE | 2019-05-01 14:37 | NUR ---
05/01/19 1437 Parvin Carty O2 10L VIA POM MASK
[2019-08-15] MEDS ORDERED: CITA20 PO (11:20)
[2019-08-15] MEDS ORDERED: HYDR1TAB94 PO (11:23)
[2019-08-15] MEDS ORDERED: Vitron-C Table1 EACH PO (11:23)
== END 2019-05-01 15:04 | disposition home or self-care (01) ==
LOC: ORSCSDS 12:08
PROVIDERS: Internal Medicine Gastroenterology
PROC: 0D568ZZ Destruction of Stomach, Via Natural or Artificial Opening Endoscopic (ICD-10-PCS; principal; 2019-05-01 13:30)
DX: D50.9 Iron deficiency anemia, unspecified (principal); K44.9 Diaphragmatic hernia without obstruction or gangrene; Q27.33 Arteriovenous malformation of digestive system vessel; I10 Essential (primary) hypertension; I25.10 Atherosclerotic heart disease of native coronary artery without angina pectoris; Z79.899 Other long term (current) drug therapy
CPT/HCPCS: J2704; J7120

== ENCOUNTER 2019-07-02 13:17 | Day surgery (SDC) | payer OTHER ==
[~2019-07-02 13:17] MED LIST changes: +IRON150C
[2019-07-03] MEDS ORDERED: TORSE20 PO (13:36)
[2019-08-15] MEDS ORDERED: CITA20 PO (11:20)
[2019-08-15] MEDS ORDERED: Vitron-C Table1 EACH PO (11:23)
[2019-08-15] MEDS ORDERED: HYDR1TAB94 PO (11:23)
== END 2019-07-02 19:04 | disposition home or self-care (01) ==
LOC: ATC 13:17
DX: C90.00 Multiple myeloma not having achieved remission (principal); D50.9 Iron deficiency anemia, unspecified; I13.0 Hypertensive heart and chronic kidney disease with heart failure and stage 1 through stage 4 chronic kidney disease, or unspecified chronic kidney disease; I50.22 Chronic systolic (congestive) heart failure; N18.3 Chronic kidney disease, stage 3 (moderate); D63.1 Anemia in chronic kidney disease; I25.10 Atherosclerotic heart disease of native coronary artery without angina pectoris; F41.9 Anxiety disorder, unspecified; F32.9 Major depressive disorder, single episode, unspecified; K21.9 Gastro-esophageal reflux disease without esophagitis; E78.5 Hyperlipidemia, unspecified; E03.9 Hypothyroidism, unspecified; G47.30 Sleep apnea, unspecified; Z79.899 Other long term (current) drug therapy; Z79.02 Long term (current) use of antithrombotics/antiplatelets
CPT/HCPCS: 36415; 36430; 86850; 86870; 86900; 86901; 86922; J7050; P9016

== ENCOUNTER 2019-07-03 12:31 | Day surgery (SDC) | payer OTHER ==
[~2019-07-03] VITALS: Ht 154.9 cm; Wt 62.4 kg
[2019-07-03] MEDS ORDERED: TORSE20 PO (13:36)
--- NOTE | 2019-07-03 13:41 | NUR ---
07/03/19 1341 Whitney Coon 1 IV MISS IN RH BY SINDY VALVE 1 IV MISS IN RFA BY SINDY VALVE 1 GOOD IV IN LFA BY SHAKIRA PT TOW
--- NOTE | 2019-07-03 14:42 | NUR ---
07/03/19 1442 Mouna Zimmerman O2 AT 10L VIA POM MASK WITH CO2 LINE BY NASAL CANNULA
[2019-08-15] MEDS ORDERED: CITA20 PO (11:20)
[2019-08-15] MEDS ORDERED: HYDR1TAB94 PO (11:23)
[2019-08-15] MEDS ORDERED: Vitron-C Table1 EACH PO (11:23)
== END 2019-07-03 15:35 | disposition home or self-care (01) ==
LOC: ORSCSDS 12:31
PROVIDERS: Internal Medicine Gastroenterology
PROC: 0D568ZZ Destruction of Stomach, Via Natural or Artificial Opening Endoscopic (ICD-10-PCS; principal; 2019-07-03 14:00)
DX: D50.9 Iron deficiency anemia, unspecified (principal); R19.5 Other fecal abnormalities; K31.811 Angiodysplasia of stomach and duodenum with bleeding; G47.33 Obstructive sleep apnea (adult) (pediatric); K44.9 Diaphragmatic hernia without obstruction or gangrene; Z79.899 Other long term (current) drug therapy
CPT/HCPCS: J2704; J7120

== ENCOUNTER → 2019-07-17 | Outpatient (CLI) | payer OTHER ==
[~2019-07-17] MED LIST changes: +Vitron-C Table1 EACH PO
[2019-07-19 06:31] LABS: Stool Occult Bld Immuno 1 Positive (NEGATIVE)
[2019-07-19 06:32] LABS: Stool Occult Bld Immuno 2 Positive (NEGATIVE)
== END | disposition home or self-care (01) ==
LOC: LAB EV 11:30
PROVIDERS: Internal Medicine Gastroenterology
DX: D50.9 Iron deficiency anemia, unspecified (principal); R19.5 Other fecal abnormalities
CPT/HCPCS: 82274

== ENCOUNTER 2019-08-21 07:42 | Day surgery (SDC) | payer OTHER ==
[~2019-08-21] VITALS: Ht 154.9 cm; Wt 62.3 kg
--- NOTE | 2019-08-21 09:07 | NUR ---
08/21/19 0907 Mansi Marquez LATE ENTRY TO ROOM WE WERE WAITING FOR MD BLACKBURN TO SEE PT.
--- NOTE | 2019-08-21 10:12 | NUR ---
08/21/19 1012 Parvin Carty APPOINTMENT CONFIRMED WITH PT FOR MONDAY, September AT 1545 FOR A REPEAT EGD.
== END 2019-08-21 10:06 | disposition home or self-care (01) ==
LOC: ORSCSDS 07:42
PROVIDERS: Internal Medicine Gastroenterology
PROC: 0D578ZZ Destruction of Stomach, Pylorus, Via Natural or Artificial Opening Endoscopic (ICD-10-PCS; principal; 2019-08-21 09:00)
DX: K31.819 Angiodysplasia of stomach and duodenum without bleeding (principal); D50.9 Iron deficiency anemia, unspecified; R19.5 Other fecal abnormalities; K44.9 Diaphragmatic hernia without obstruction or gangrene; G47.33 Obstructive sleep apnea (adult) (pediatric); E03.9 Hypothyroidism, unspecified; I25.10 Atherosclerotic heart disease of native coronary artery without angina pectoris; Z79.899 Other long term (current) drug therapy
CPT/HCPCS: J0461; J2405; J2704; J7120

== ENCOUNTER 2019-10-09 20:31 | Observation (INO) | payer OTHER ==
[~2019-10-09] VITALS: Ht 160 cm; Wt 63.5 kg
[2019-10-09 21:13] LABS: BASOPHILS ABSOLUTE AUTO 0.02 K/mm3 (0.00-0.23); BASOPHILS PERCENT AUTO 1 % (0-2); EOSINOPHILS ABSOLUTE AUTO 0.06 K/mm3 (0.00-0.68); EOSINOPHILS PERCENT AUTO 2 % (0-6); Hematocrit 34.8 % (33.0-51.0); Hemoglobin 10.8 g/dL (11.5-16.0); IMMATURE GRAN ABSOLUTE AUTO 0.04 K/mm3 (0.00-0.10); IMMATURE GRAN PERCENT AUTO 1 % (0-1); LYMPHOCYTES PERCENT AUTO 21 % (21-46); MONOCYTES ABSOLUTE AUTO 0.39 K/mm3 (0.16-1.47); MONOCYTES PERCENT AUTO 10 % (4-13); Mean Corpuscular HGB 32.4 pg (26.0-34.0); Mean Corpuscular Volume 105 fL (80-100); Mean Platelet Volume 10.5 fL (9.1-12.4); NEUTROPHILS ABSOLUTE AUTO 2.53 K/mm3 (1.96-9.15); NEUTROPHILS PERCENT AUTO 66 % (41-73); Platelet Count 108 K/mm3 (150-400); RDW Coefficient Variation 15.9 % (11.7-14.2); RDW Standard Deviation 61.3 fL (35.1-46.3); Red Blood Cell Count 3.33 M/mm3 (3.80-5.20); White Blood Cell Count 3.84 K/mm3 (4.00-11.30)
[2019-10-09 21:28] LABS: Alanine Aminotransfer (ALT/SGP 49 U/L (12-78); Albumin, Blood 3.7 g/dL (3.4-5.0); Albumin/Globulin Ratio 0.9 (0.8-1.8); Alk Phos 100 U/L (50-136); Anion Gap 3 mmol/L (6-16); Aspartate Aminotrans (AST/SGOT 56 U/L (12-37); Bilirubin, Total 0.5 mg/dL (0.1-1.0); Blood Urea Nitrogen 29 mg/dL (8-24); Bun/Creatinine Ratio 25.7 (12.0-20.0); CO2, Blood 29 mmol/L (21-32); Calcium, Blood 9.1 mg/dL (8.5-10.1); Chloride, Blood 109 mmol/L (98-108); Creatinine, Blood 1.13 mg/dL (0.40-1.00); Globulin, Blood 4.2 g/dL (2.2-4.0); Glomerular Filtration Rate 49 (60-); Glucose, Blood 104 mg/dL (70-99); Potassium, Blood 4.1 mmol/L (3.5-5.5); Sodium, Blood 141 mmol/L (136-145); Total Protein, Blood 7.9 g/dL (6.4-8.2); Troponin I <0.015 ng/mL (0.000-0.040)
[2019-10-10 04:04] LABS: Albumin/Globulin Ratio 0.9 (0.8-1.8); Bilirubin, Total 0.4 mg/dL (0.1-1.0); Bun/Creatinine Ratio 25.8 (12.0-20.0); Calcium, Blood 8.5 mg/dL (8.5-10.1); Creatinine, Blood 0.97 mg/dL (0.40-1.00); Globulin, Blood 3.2 g/dL (2.2-4.0); Potassium, Blood 4.2 mmol/L (3.5-5.5); Total Protein, Blood 6.2 g/dL (6.4-8.2)
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
[2019-10-10 05:02] LABS: Hematocrit 30.4 % (33.0-51.0); Hemoglobin 9.3 g/dL (11.5-16.0); Mean Corpuscular HGB 32.1 pg (26.0-34.0); Mean Corpuscular HGB Conc 30.6 g/dL (31.5-36.5); Mean Corpuscular Volume 105 fL (80-100); Mean Platelet Volume 10.5 fL (9.1-12.4); Platelet Count 89 K/mm3 (150-400); RDW Coefficient Variation 15.9 % (11.7-14.2); RDW Standard Deviation 61.7 fL (35.1-46.3); White Blood Cell Count 3.52 K/mm3 (4.00-11.30)
--- NOTE | 2019-10-10 10:24 | NUR ---
Assumed care of pt at approx 0710; pt sleeping in bed, cradled with pillows and blankets at time of arrival. Pt arrousable, able to take all pills whole with water. Pt up in bed for breakfast, denies pain at this time. Conversing appropriately with staff, able to use call light appropriately to make needs known. VSS. Breathing even and unlabored, but shallow. O2 saturations >95% on 1L NC. Pt is SBA to BSC. No acute concerns at this time. See shift assessment for detailed systems assessment. Pt's granddaughter is at bedside.
--- NOTE | 2019-10-10 12:27 | NUR ---
Pt transport to Surg 232 with all pt belongings with pt and pt's family. Report given to SHAKIRA Davenport.
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
--- NOTE | 2019-10-10 12:44 | NUR ---
TRANSFER ARRIVAL TO UNIT FROM PCU. PT ALERT AND ORIENTED. MEDICATED WITH IV TORADOL FOR 5/10 BILAT RIB PAIN. PT REPORTS INCREASED PAIN WITH DEEP BREATHING. ON 1L O2 VIA NC. LUNG SOUNDS CLEAR BUT DIMINISHED. ENCOURAGING DEEP BREATHING. UP TO BSC WITH 1 STANDBY MINIMAL ASSIST. IVF INFUSING PER ORDERS. TELE IN PLACE. FAMILY AT BEDSIDE FOR SUPPORT. ORIENTED TO ROOM AND CALL LIGHT WITHIN REACH.
--- NOTE | 2019-10-10 16:59 | NUR ---
DISCHARGE PT EDUCATED ON AND RECEIVED PRINTED DC INSTRUCTIONS AND VERB AN UNDERSTANDING. HARD RX FOR NORCO GIVEN TO PT. IV DC'D. REFERRAL FOR HOME HEALTH SENT BY SWING FRAME GRINDER OPERATOR. FAMILY ASSISTING IN GATHERING ALL PERSONAL BELONGINGS.
== END 2019-10-10 17:07 | disposition home health service (06) ==
LOC: ER 20:31 → PCU 22:23 → ER 22:23 → SURS 22:23 → PCU 22:23 → SURS 10-10 12:15
PROVIDERS: Emergency Medicine; ADMIT Internal Medicine
DX: S22.42XA Multiple fractures of ribs, left side, initial encounter for closed fracture (principal); S22.31XA Fracture of one rib, right side, initial encounter for closed fracture; I12.9 Hypertensive chronic kidney disease with stage 1 through stage 4 chronic kidney disease, or unspecified chronic kidney disease; N18.3 Chronic kidney disease, stage 3 (moderate); D63.1 Anemia in chronic kidney disease; I25.10 Atherosclerotic heart disease of native coronary artery without angina pectoris; I48.91 Unspecified atrial fibrillation; I25.2 Old myocardial infarction; E78.5 Hyperlipidemia, unspecified; G25.81 Restless legs syndrome; C90.00 Multiple myeloma not having achieved remission; G47.33 Obstructive sleep apnea (adult) (pediatric); M81.0 Age-related osteoporosis without current pathological fracture; Z95.1 Presence of aortocoronary bypass graft; Z90.710 Acquired absence of both cervix and uterus; Z79.899 Other long term (current) drug therapy; Z86.74 Personal history of sudden cardiac arrest; V43.62XA Car passenger injured in collision with other type car in traffic accident, initial encounter
CPT/HCPCS: 36415; 71260; 80053; 84484; 85025; 85027; 93005; 93010; 96372; 96374-59; 96375; 96375-59; 96376; 97162; 97166; 97530; 97535; 99285-25; G0378; J1170; J1650; J1885; J2405; J3010; J7030; Q9967

== ENCOUNTER 2019-10-28 15:10 | Emergency (ER) | payer OTHER ==
[~2019-10-28] VITALS: Ht 154.9 cm; Wt 63.5 kg
[2019-10-28 15:41] LABS: BASOPHILS ABSOLUTE AUTO 0.03 K/mm3 (0.00-0.23); BASOPHILS PERCENT AUTO 1 % (0-2); EOSINOPHILS ABSOLUTE AUTO 0.08 K/mm3 (0.00-0.68); EOSINOPHILS PERCENT AUTO 2 % (0-6); Hemoglobin 10.5 g/dL (11.5-16.0); IMMATURE GRAN PERCENT AUTO 0 % (0-1); LYMPHOCYTES ABSOLUTE AUTO 0.79 K/mm3 (0.84-5.20); LYMPHOCYTES PERCENT AUTO 23 % (21-46); MONOCYTES ABSOLUTE AUTO 0.41 K/mm3 (0.16-1.47); MONOCYTES PERCENT AUTO 12 % (4-13); Mean Corpuscular HGB 31.8 pg (26.0-34.0); Mean Corpuscular HGB Conc 30.9 g/dL (31.5-36.5); Mean Corpuscular Volume 103 fL (80-100); Mean Platelet Volume 10.2 fL (9.1-12.4); NEUTROPHILS ABSOLUTE AUTO 2.11 K/mm3 (1.96-9.15); NEUTROPHILS PERCENT AUTO 62 % (41-73); Platelet Count 135 K/mm3 (150-400); RDW Coefficient Variation 16.1 % (11.7-14.2); RDW Standard Deviation 61.4 fL (35.1-46.3); White Blood Cell Count 3.42 K/mm3 (4.00-11.30)
[2019-10-28 16:01] LABS: Alanine Aminotransfer (ALT/SGP 32 U/L (12-78); Albumin, Blood 3.8 g/dL (3.4-5.0); Albumin/Globulin Ratio 0.9 (0.8-1.8); Alk Phos 131 U/L (50-136); Anion Gap 6 mmol/L (6-16); Aspartate Aminotrans (AST/SGOT 26 U/L (12-37); Bilirubin, Total 0.6 mg/dL (0.1-1.0); Blood Urea Nitrogen 26 mg/dL (8-24); Bun/Creatinine Ratio 21.3 (12.0-20.0); CO2, Blood 30 mmol/L (21-32); Calcium, Blood 9.4 mg/dL (8.5-10.1); Chloride, Blood 106 mmol/L (98-108); Creatinine, Blood 1.22 mg/dL (0.40-1.00); Globulin, Blood 4.2 g/dL (2.2-4.0); Glomerular Filtration Rate 45 (60-); Glucose, Blood 90 mg/dL (70-99); Sodium, Blood 142 mmol/L (136-145); Troponin I <0.015 ng/mL (0.000-0.040)
== END 2019-10-28 18:32 | disposition home or self-care (01) ==
LOC: ER 15:10
PROVIDERS: Physician Assistant
DX: S22.43XD Multiple fractures of ribs, bilateral, subsequent encounter for fracture with routine healing (principal); V89.2XXD Person injured in unspecified motor-vehicle accident, traffic, subsequent encounter; Z79.899 Other long term (current) drug therapy; G47.30 Sleep apnea, unspecified; I12.9 Hypertensive chronic kidney disease with stage 1 through stage 4 chronic kidney disease, or unspecified chronic kidney disease; N18.9 Chronic kidney disease, unspecified; I25.10 Atherosclerotic heart disease of native coronary artery without angina pectoris; E03.9 Hypothyroidism, unspecified; E78.5 Hyperlipidemia, unspecified
CPT/HCPCS: 36415; 71046; 80053; 83690; 84484; 85025; 93005; 93010; 99284-25; J2930

== ENCOUNTER 2019-12-11 13:43 | Day surgery (SDC) | payer OTHER ==
[~2019-12-11] VITALS: Ht 152.4 cm; Wt 61.2 kg
--- NOTE | 2019-12-11 14:36 | NUR ---
12/11/19 1436 YAEL CASTANO ONE BAD IV IN R AC DUE TO KELLY MOVING, ONE GOOD IV IN L AC BY RN WORKING GREAT.
== END 2019-12-11 15:26 | disposition home or self-care (01) ==
LOC: ORSCSDS 13:43
PROVIDERS: Internal Medicine Gastroenterology
PROC: 0D568ZZ Destruction of Stomach, Via Natural or Artificial Opening Endoscopic (ICD-10-PCS; principal; 2019-12-11 15:00)
DX: R19.5 Other fecal abnormalities (principal); D50.9 Iron deficiency anemia, unspecified; Q27.33 Arteriovenous malformation of digestive system vessel; G47.33 Obstructive sleep apnea (adult) (pediatric); E03.9 Hypothyroidism, unspecified; E78.00 Pure hypercholesterolemia, unspecified; Z79.899 Other long term (current) drug therapy
CPT/HCPCS: J2704; J7120

== ENCOUNTER → 2020-02-28 | Outpatient (CLI) | payer OTHER ==
[2020-02-29 22:04] LABS: Adenovirus F 40/41 Not Detected (NOT DETECT); Astrovirus Not Detected (NOT DETECT); Campylobacter Sp Not Detected (NOT DETECT); Cryptosporidium Not Detected (NOT DETECT); Cyclospora Cayetanensis Not Detected (NOT DETECT); E. Coli O157 Not Detected (NOT DETECT); Entamoeba Histolytica Not Detected (NOT DETECT); Enteroaggregative E. coli-EAEC Not Detected (NOT DETECT); Enteropathogenic E. coli-EPEC Not Detected (NOT DETECT); Enterotoxigenic E. coli-ETEC Not Detected (NOT DETECT); Giardia Lamblia Not Detected (NOT DETECT); Norovirus GI/GII Not Detected (NOT DETECT); Plesiomonas Shigelloides Not Detected (NOT DETECT); Rotavirus A Not Detected (NOT DETECT); Salmonella Sp Not Detected (NOT DETECT); Sapovirus Not Detected (NOT DETECT); Shiga Toxin-prod E. coli-STEC Not Detected (NOT DETECT); Shigella/Enteroin E. coli-EIEC Not Detected (NOT DETECT); Vibrio Cholerae Not Detected (NOT DETECT); Vibrio Sp Not Detected (NOT DETECT); Yersinia Enterocolitica Not Detected (NOT DETECT)
== END | disposition home or self-care (01) ==
LOC: LAB SHORT 22:25 → LAB EV 22:25 → LAB FUT 02-25 11:20
PROVIDERS: Internal Medicine Gastroenterology
DX: R19.7 Diarrhea, unspecified (principal)
CPT/HCPCS: 0097U

== ENCOUNTER 2020-04-07 10:44 | Inpatient (IN) | payer OTHER ==
[~2020-04-07] VITALS: Ht 157.5 cm; Wt 64.9 kg
[~2020-04-07 10:44] MED LIST changes: +EUTHYROX50 MCG PO
[2020-04-07] MEDS ORDERED: LOSA50 PO (11:29)
[2020-04-07] MEDS ORDERED: COLE625 PO (11:29)
[2020-04-07 11:36] LABS: BASOPHILS ABSOLUTE AUTO 0.02 K/mm3 (0.00-0.23); BASOPHILS PERCENT AUTO 1 % (0-2); EOSINOPHILS ABSOLUTE AUTO 0.03 K/mm3 (0.00-0.68); EOSINOPHILS PERCENT AUTO 1 % (0-6); Hematocrit 21.8 % (33.0-51.0); IMMATURE GRAN ABSOLUTE AUTO 0.04 K/mm3 (0.00-0.10); IMMATURE GRAN PERCENT AUTO 2 % (0-1); LYMPHOCYTES ABSOLUTE AUTO 0.38 K/mm3 (0.84-5.20); LYMPHOCYTES PERCENT AUTO 14 % (21-46); MONOCYTES ABSOLUTE AUTO 0.24 K/mm3 (0.16-1.47); MONOCYTES PERCENT AUTO 9 % (4-13); Mean Corpuscular HGB 25.6 pg (26.0-34.0); Mean Corpuscular HGB Conc 27.5 g/dL (31.5-36.5); Mean Corpuscular Volume 93 fL (80-100); Mean Platelet Volume 10.5 fL (9.1-12.4); NEUTROPHILS ABSOLUTE AUTO 2.04 K/mm3 (1.96-9.15); NEUTROPHILS PERCENT AUTO 74 % (41-73); Platelet Count 105 K/mm3 (150-400); RDW Coefficient Variation 16.4 % (11.7-14.2); RDW Standard Deviation 56.7 fL (35.1-46.3); Red Blood Cell Count 2.34 M/mm3 (3.80-5.20); White Blood Cell Count 2.75 K/mm3 (4.00-11.30)
[2020-04-07 11:58] LABS: Albumin, Blood 3.3 g/dL (3.4-5.0); Albumin/Globulin Ratio 0.8 (0.8-1.8); Bilirubin, Total 0.5 mg/dL (0.1-1.0); Calcium, Blood 8.4 mg/dL (8.5-10.1); Creatinine, Blood 1.35 mg/dL (0.40-1.00); Globulin, Blood 3.9 g/dL (2.2-4.0); Potassium, Blood 4.2 mmol/L (3.5-5.5); Total Protein, Blood 7.2 g/dL (6.4-8.2); Troponin I 0.13 ng/mL (0.000-0.040)
[2020-04-07] MEDS ORDERED: BUDESONIDE EC3 MG PO (13:33)
[2020-04-07] MEDS ORDERED: Citalopram HBr20 MG PO (13:35)
[2020-04-07] MEDS ORDERED: TORSE20 PO (13:36)
--- NOTE | 2020-04-07 16:06 | NUR ---
MD NAILS IN TO SEE PATIENT UPPER SCOPE TO BE DONE 04/08 AT [phone] - CLEARS OKAY UNTIL NPO AT 1000 04/08. MEDS OKAY WITH SIPS.
--- NOTE | 2020-04-07 18:15 | NUR ---
PCU ADMIT/DAYSHIFT SUMMARY PATIENT ARRIVE TO UNIT VIA STRETCHER FROM ER. PATIENT AMBULATED TO UNIT BED. RESP LABORED WITH EXCERTION - EVEN AND UNLABORED AT REST ON 4 LPM NC. BIPAP AT BEDSIDE AND CONTINUOUS BIOX ON. PATIENT GIVEN 1 UNIT OF PRBC AND 2ND UNIT OF PRBC STARTED. LUNG SOUNDS WHEEZE T/O. PATIENT VERBALIZED THAT SHE STOPPED TAKING HER LASIX AT HOME BECAUSE IT MADE HER URINATE SO MUCH - PATIENT EDUCATED. HISTORY AND ADMIT COMPLETED. PATIENT ALERT AND ORIENTED X4. PATIENT DENIES ANY CHEST PAIN OR PRESSURE. MD LOTT TO ROOM FOR CONSULT. WILL CONTINUE TO MONITOR AND REPORT TO NOC SHIFT RN.
--- NOTE | 2020-04-07 20:00 | NUR ---
PT ASSISTED TO BSC TO VOID, CL PALE URINE. 2ND UNIT PRBC'S INFUSING. PT CO CRAMPING R ABD & THIGHS. O2 2L NC, TOLERATES GETTING UP TO BSC. NO COUGH. CONT TO MONITOR, CALL LIGHT IN REACH, AND USING APPROP.
--- NOTE | 2020-04-07 21:30 | NUR ---
BLOOD TRANSFUSION COMPLETE. [place] [facility] [place] DIURESING. CONT TO COMPLAIN OF LEG CRAMPS, AND REFUSES PAIN MED. MEDS GIVEN W JELLO, SWALLOWS WO DIFF. CALLS FOR ASSIST TO VOID. NO OTHER CHANGES.
--- NOTE | 2020-04-08 | NUR ---
PT CALLED TO REQ PAIN MED & MED W SOBEIDA. CONT TO PARTHA, NO OTHER CHANGES.
[2020-04-08 04:20] LABS: BASOPHILS ABSOLUTE AUTO 0.02 K/mm3 (0.00-0.23); BASOPHILS PERCENT AUTO 0 % (0-2); EOSINOPHILS ABSOLUTE AUTO 0.05 K/mm3 (0.00-0.68); EOSINOPHILS PERCENT AUTO 1 % (0-6); Hematocrit 30.5 % (33.0-51.0); Hemoglobin 9.3 g/dL (11.5-16.0); IMMATURE GRAN ABSOLUTE AUTO 0.01 K/mm3 (0.00-0.10); IMMATURE GRAN PERCENT AUTO 0 % (0-1); LYMPHOCYTES ABSOLUTE AUTO 0.87 K/mm3 (0.84-5.20); LYMPHOCYTES PERCENT AUTO 18 % (21-46); MONOCYTES ABSOLUTE AUTO 0.53 K/mm3 (0.16-1.47); MONOCYTES PERCENT AUTO 11 % (4-13); Mean Corpuscular HGB 27.7 pg (26.0-34.0); Mean Corpuscular HGB Conc 30.5 g/dL (31.5-36.5); Mean Corpuscular Volume 91 fL (80-100); Mean Platelet Volume 10.8 fL (9.1-12.4); NEUTROPHILS ABSOLUTE AUTO 3.41 K/mm3 (1.96-9.15); NEUTROPHILS PERCENT AUTO 70 % (41-73); Platelet Count 105 K/mm3 (150-400); RDW Coefficient Variation 15.5 % (11.7-14.2); RDW Standard Deviation 50.5 fL (35.1-46.3); Red Blood Cell Count 3.36 M/mm3 (3.80-5.20); White Blood Cell Count 4.89 K/mm3 (4.00-11.30)
[2020-04-08 04:34] LABS: Bun/Creatinine Ratio 18.6 (12.0-20.0); Calcium, Blood 8.6 mg/dL (8.5-10.1); Creatinine, Blood 1.29 mg/dL (0.40-1.00); Potassium, Blood 3.8 mmol/L (3.5-5.5)
--- NOTE | 2020-04-08 06:23 | NUR ---
PT STATES SHE SLEPT WELL, GOOD RELIEF W NORCO 1 TAB. REMINDED PT OF DIET RESTRICTIONS THIS AM, CLEAR TILL 1000, THEN NPO. CONT ON 2LNC. CALL LIGHT IN REACH.
--- NOTE | 2020-04-08 07:48 | NUR ---
ASSUMED CARE AT 0700. RESTING IN BED SUPINE IN LOW FOWLERS, O2 2L VIA NC. CLEAR L/S THROUGHOUT. A/A/OX4, VSS, REVIEWED PLAN OF CARE FOR DAY. WILL CONTINUE TO MONITOR.
--- NOTE | 2020-04-08 13:14 | NUR ---
History, Chart, Medications and Allergies reviewed before start of procedure. Patient confirms NPO status and agrees with scheduled surgery. Pre-Op teaching done. Pt verbalizes understanding. History, Chart, Medications and Allergies reviewed before start of procedure.
--- NOTE | 2020-04-08 13:25 | NUR ---
04/08/20 5152 Harvey Montes History, Chart, Medications and Allergies reviewed before start of procedure.MONITOR INTACT WITH CONTINUOUS PULSE OXIMETRY AND INTERMITTENT BP.3-LEAD EKG REVIEWED WITH PHYSICIAN PRIOR TO START OF PROCEDURE.O2 VIA N/C INTACT THROUGHOUT SEDATION/PROCEDURE. See Anesthesia record.
--- NOTE | 2020-04-08 14:53 | NUR ---
RETURNED FROM DAY SURGERY FOLLOWING EGD AT 1400, REPORT FROM SHAKIRA JIMENEZ. A/A/OX4. WILL CONTINUE TO MONITOR.
--- NOTE | 2020-04-08 18:03 | NUR ---
SHIFT SUMMARY; A/A/OX4 DURING SHIFT. EGD COMPLETED TODAY, DIET ADVANCED TO REGULAR DIET PER ORDER FROM DR. NAILS. VSS, TROPONIN TRENDING DOWN DURING SHIFT. 02 DC'D TODAY, SATS 97% ON RA AIR WITH NO LABORED BREATHING. UP IN ROOM TO COMMODE WITH STANDBY ASSIST DURING SHIFT, WILL CONTINUE TO MONITOR UNTIL SHIFT CHANGE.
--- NOTE | 2020-04-08 19:00 | NUR ---
REPORT AND BEDSIDE ROUNDING WITH INGA ROSENBERG. ASSUMED PT CARE. PT PLEASANT WITH INTRODUTIONS. DENIES IMMEDIATE NEEDS.
--- NOTE | 2020-04-08 19:50 | NUR ---
ASSESSMENT CHARTED. VSS. PT NOT USING BIPAP ANYMORE. RESP TO ROOM FOR ASSESSMENT AND TO REMOVE BIPAP. PT CALL LIGHT/REMOTE IN REACH WILL CONTINUE TO MONITOR.
--- NOTE | 2020-04-08 20:28 | NUR ---
PT MEDICATED WITH SCHEDULED MEDS PER EMAR. ASSISTED PT UP TO CHAIR FOR AWHILE. CALL LIGHT/REMOTE IN REACH. THIS RN PRINTED PT SOME SODUKO PUZZLES PER PT REQUEST.
--- NOTE | 2020-04-08 22:07 | NUR ---
PT RESTING IN POSTION OF COMFORT. WILL CONTINUE TO MONITOR.
--- NOTE | 2020-04-08 23:46 | NUR ---
VSS. PT STATES SHE FEELS MISERABLE. PT STATES THAT SHE ALL OF A SUDDEN GOT HOT AND NEEDED TO KICK OFF BLANKETS. PT STATES SHE HAS HYDROCODONE THAT SHE TAKES SOMETIMES FOR HER SCOLIOSIS. THIS RN WILL REVIEW EMAR AND SEE ABOUT GETTING MED ORDERED. PT STATES THIS IS HOW SHE FELT WHEN SHE CALLED 911.
--- NOTE | 2020-04-09 | NUR ---
PT MEDICATED WITH NORCO PER EMAR FOR C/O BACK PAIN. REYN CHRISTIAN.
--- NOTE | 2020-04-09 00:46 | NUR ---
PT STATES PAIN IMPROVED.
--- NOTE | 2020-04-09 05:28 | NUR ---
VSS. PT MEDICATED WITH SCHEDULED PROTONIX AND SYNTHROID PER EMAR. RENY PROVIDED. PT STATES SHE FEELS A LITTLE BETTER THIS AM.
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
[2020-04-09 07:34] LABS: BASOPHILS ABSOLUTE AUTO 0.02 K/mm3 (0.00-0.23); BASOPHILS PERCENT AUTO 1 % (0-2); EOSINOPHILS ABSOLUTE AUTO 0.09 K/mm3 (0.00-0.68); EOSINOPHILS PERCENT AUTO 2 % (0-6); Hematocrit 30.3 % (33.0-51.0); Hemoglobin 9.3 g/dL (11.5-16.0); IMMATURE GRAN ABSOLUTE AUTO 0.01 K/mm3 (0.00-0.10); IMMATURE GRAN PERCENT AUTO 0 % (0-1); LYMPHOCYTES ABSOLUTE AUTO 1.02 K/mm3 (0.84-5.20); LYMPHOCYTES PERCENT AUTO 25 % (21-46); MONOCYTES ABSOLUTE AUTO 0.55 K/mm3 (0.16-1.47); MONOCYTES PERCENT AUTO 13 % (4-13); Mean Corpuscular HGB 28.4 pg (26.0-34.0); Mean Corpuscular HGB Conc 30.7 g/dL (31.5-36.5); Mean Corpuscular Volume 92 fL (80-100); Mean Platelet Volume 10.3 fL (9.1-12.4); NEUTROPHILS ABSOLUTE AUTO 2.43 K/mm3 (1.96-9.15); NEUTROPHILS PERCENT AUTO 59 % (41-73); Platelet Count 112 K/mm3 (150-400); RDW Coefficient Variation 15.8 % (11.7-14.2); RDW Standard Deviation 52.8 fL (35.1-46.3); Red Blood Cell Count 3.28 M/mm3 (3.80-5.20); White Blood Cell Count 4.12 K/mm3 (4.00-11.30)
[2020-04-09 07:49] LABS: Bun/Creatinine Ratio 23.3 (12.0-20.0); Calcium, Blood 8.3 mg/dL (8.5-10.1); Creatinine, Blood 1.33 mg/dL (0.40-1.00)
--- NOTE | 2020-04-09 07:54 | NUR ---
ASSUMED CARE AT 0700, REPORT FROM SHAKIRA HILARIO. RESTING IN BED IN HIGH FOWLERS, A/A/OX4. PARACHUTE FOLDER AT BEDSIDE FOR EVAL. PLAN OF CARE REVIEWED FOR DAY, WILL CONTINUE TO MONITOR.
== END 2020-04-09 14:59 | disposition home or self-care (01) | DRG 377 ==
LOC: ER 10:44 → PCU 12:58
PROVIDERS: Emergency Medicine; Internal Medicine Cardiovascular Disease; ADMIT Student in an Organized Health Care Education/Training Program
PROC: 8E0ZXY6 Isolation (ICD-10-PCS; principal; 2020-04-07)
PROC: 30233N1 Transfusion of Nonautologous Red Blood Cells into Peripheral Vein, Percutaneous Approach (ICD-10-PCS; 2020-04-07)
PROC: 5A09357 Assistance with Respiratory Ventilation, Less than 24 Consecutive Hours, Continuous Positive Airway Pressure (ICD-10-PCS; 2020-04-07)
PROC: 0D568ZZ Destruction of Stomach, Via Natural or Artificial Opening Endoscopic (ICD-10-PCS; 2020-04-08)
DX: K31.811 Angiodysplasia of stomach and duodenum with bleeding (principal); I50.31 Acute diastolic (congestive) heart failure; J96.01 Acute respiratory failure with hypoxia; I21.A1 Myocardial infarction type 2; D62 Acute posthemorrhagic anemia; I42.9 Cardiomyopathy, unspecified; G25.81 Restless legs syndrome; I25.10 Atherosclerotic heart disease of native coronary artery without angina pectoris; E03.9 Hypothyroidism, unspecified; E78.5 Hyperlipidemia, unspecified; M41.9 Scoliosis, unspecified; Z95.1 Presence of aortocoronary bypass graft; Z20.828 Contact with and (suspected) exposure to other viral communicable diseases; I35.0 Nonrheumatic aortic (valve) stenosis; G47.33 Obstructive sleep apnea (adult) (pediatric); E66.3 Overweight; Z68.27 Body mass index [BMI] 27.0-27.9, adult; N18.3 Chronic kidney disease, stage 3 (moderate); I12.9 Hypertensive chronic kidney disease with stage 1 through stage 4 chronic kidney disease, or unspecified chronic kidney disease; D46.9 Myelodysplastic syndrome, unspecified
CPT/HCPCS: 36415; 36430; 71046; 80048; 80053; 82272; 83880; 84484; 85025; 86850; 86870; 86900; 86901; 86922; 93005; 93010; 93306; 94660; 94762; 97162; 97166; 97535; 99285-25; A9270-GY; J1940; J2001; J2704; J7030; J7120; P9016; U0002

== ENCOUNTER → 2020-08-21 | Outpatient (CLI) | payer OTHER ==
[~2020-08-21] MED LIST changes: +BUDESONIDE EC3 MG PO; +COLE625 PO; +Citalopram HBr20 MG PO
== END ==
LOC: LAB SHORT 17:57 → LAB EV 17:57
DX: N30.00 Acute cystitis without hematuria (principal)
CPT/HCPCS: 87086

== ENCOUNTER 2021-01-01 22:16 | Emergency (ER) | payer OTHER ==
[~2021-01-01] VITALS: Ht 165.1 cm; Wt 68.0 kg
[~2021-01-01 22:16] MED LIST changes: -ATOR40TA PO; -Citalopram HBr20 MG PO; -EUTHYROX50 MCG PO; -Lopressor 25 mg25 MG PO; -Mirapex1.5 MG PO; -PANT40 PO; -POTA10T PO
[2021-01-01] MEDS ORDERED: Norco 5-325 Ta1 EACH PO (23:31)
[2021-01-01 23:34] LABS: BASOPHILS ABSOLUTE AUTO 0.03 K/mm3 (0.00-0.23); BASOPHILS PERCENT AUTO 1 % (0-2); EOSINOPHILS ABSOLUTE AUTO 0.07 K/mm3 (0.00-0.68); EOSINOPHILS PERCENT AUTO 2 % (0-6); Hematocrit 28.2 % (33.0-51.0); Hemoglobin 8.4 g/dL (11.5-16.0); IMMATURE GRAN ABSOLUTE AUTO 0.02 K/mm3 (0.00-0.10); IMMATURE GRAN PERCENT AUTO 1 % (0-1); LYMPHOCYTES ABSOLUTE AUTO 0.56 K/mm3 (0.84-5.20); LYMPHOCYTES PERCENT AUTO 15 % (21-46); MONOCYTES ABSOLUTE AUTO 0.44 K/mm3 (0.16-1.47); MONOCYTES PERCENT AUTO 11 % (4-13); Mean Corpuscular HGB 31.8 pg (26.0-34.0); Mean Corpuscular HGB Conc 29.8 g/dL (31.5-36.5); Mean Corpuscular Volume 107 fL (80-100); Mean Platelet Volume 11.2 fL (9.1-12.4); NEUTROPHILS ABSOLUTE AUTO 2.75 K/mm3 (1.96-9.15); NEUTROPHILS PERCENT AUTO 71 % (41-73); Platelet Count 96 K/mm3 (150-400); RDW Coefficient Variation 15.7 % (11.7-14.2); RDW Standard Deviation 60.8 fL (35.1-46.3); Red Blood Cell Count 2.64 M/mm3 (3.80-5.20); White Blood Cell Count 3.87 K/mm3 (4.00-11.30)
[2021-01-01 23:52] LABS: Albumin, Blood 3.3 g/dL (3.4-5.0); Albumin/Globulin Ratio 0.8 (0.8-1.8); Bilirubin, Total 0.4 mg/dL (0.1-1.0); Creatinine, Blood 1.22 mg/dL (0.40-1.00); Globulin, Blood 3.9 g/dL (2.2-4.0); Potassium, Blood 4.4 mmol/L (3.5-5.5); Total Protein, Blood 7.2 g/dL (6.4-8.2); Troponin I 0.027 ng/mL (0.000-0.040)
== END 2021-01-02 01:40 | disposition home or self-care (01) ==
LOC: ER 22:16
PROVIDERS: Emergency Medicine
DX: I11.0 Hypertensive heart disease with heart failure (principal); I50.9 Heart failure, unspecified
CPT/HCPCS: 71046; 80053; 83880; 84484; 85025; 93005; 93010; 96374; 99285-25; J1940

== ENCOUNTER 2021-02-12 00:38 | Day surgery (SDC) | payer OTHER ==
[~2021-02-12 00:38] MED LIST changes: +ATOR40TA PO; +Citalopram HBr20 MG PO; +EUTHYROX50 MCG PO; +Lopressor 25 mg25 MG PO; +Mirapex1.5 MG PO; +Norco 5-325 Ta1 EACH PO; +PANT40 PO; +POTA10T PO
== END 2021-02-12 18:25 | disposition home or self-care (01) ==
LOC: ATC 00:38
DX: C90.00 Multiple myeloma not having achieved remission (principal); D46.9 Myelodysplastic syndrome, unspecified; D50.9 Iron deficiency anemia, unspecified; D61.818 Other pancytopenia; N18.9 Chronic kidney disease, unspecified; D63.1 Anemia in chronic kidney disease; D69.6 Thrombocytopenia, unspecified; K21.9 Gastro-esophageal reflux disease without esophagitis; I12.9 Hypertensive chronic kidney disease with stage 1 through stage 4 chronic kidney disease, or unspecified chronic kidney disease; E03.9 Hypothyroidism, unspecified; F32.9 Major depressive disorder, single episode, unspecified; M19.90 Unspecified osteoarthritis, unspecified site
CPT/HCPCS: 36415; 36430; 86850; 86870; 86900; 86901; 86922; J7050; P9016

== ENCOUNTER 2021-04-08 11:23 | Inpatient (IN) | payer OTHER, MEDICARE ==
[~2021-04-08] VITALS: Ht 152.4 cm; Wt 66.0 kg
[~2021-04-08 11:23] MED LIST changes: -ATOR40TA PO; -Citalopram HBr20 MG PO; -EUTHYROX50 MCG PO; -Lopressor 25 mg25 MG PO; -Mirapex1.5 MG PO; -PANT40 PO; -POTA10T PO
[2021-04-08 12:12] LABS: EOSINOPHILS ABSOLUTE AUTO 0.05 K/mm3 (0.00-0.68); EOSINOPHILS PERCENT AUTO 2 % (0-6); Hematocrit 23.4 % (33.0-51.0); Hemoglobin 6.9 g/dL (11.5-16.0); IMMATURE GRAN ABSOLUTE AUTO 0.02 K/mm3 (0.00-0.10); IMMATURE GRAN PERCENT AUTO 1 % (0-1); LYMPHOCYTES PERCENT AUTO 18 % (21-46); MONOCYTES ABSOLUTE AUTO 0.24 K/mm3 (0.16-1.47); MONOCYTES PERCENT AUTO 7 % (4-13); Mean Corpuscular HGB 32.5 pg (26.0-34.0); Mean Corpuscular HGB Conc 29.5 g/dL (31.5-36.5); Mean Corpuscular Volume 110 fL (80-100); NEUTROPHILS PERCENT AUTO 72 % (41-73); RDW Coefficient Variation 19.8 % (11.7-14.2); RDW Standard Deviation 79.6 fL (35.1-46.3); Red Blood Cell Count 2.12 M/mm3 (3.80-5.20)
[2021-04-08 12:14] LABS: BASOPHILS ABSOLUTE AUTO 0.01 K/mm3 (0.00-0.23); BASOPHILS PERCENT AUTO 0 % (0-2); NEUTROPHILS ABSOLUTE AUTO 2.41 K/mm3 (1.96-9.15)
[2021-04-08 12:32] LABS: Alanine Aminotransfer (ALT/SGP 24 U/L (12-78); Albumin, Blood 3.3 g/dL (3.4-5.0); Albumin/Globulin Ratio 0.9 (0.8-1.8); Alk Phos 61 U/L (50-136); Anion Gap 5 mmol/L (6-16); Aspartate Aminotrans (AST/SGOT 26 U/L (12-37); Bilirubin, Total 0.3 mg/dL (0.1-1.0); Blood Urea Nitrogen 37 mg/dL (8-24); CO2, Blood 24 mmol/L (21-32); Calcium, Blood 8.4 mg/dL (8.5-10.1); Chloride, Blood 115 mmol/L (98-108); Creatinine, Blood 1.37 mg/dL (0.40-1.00); Globulin, Blood 3.7 g/dL (2.2-4.0); Glomerular Filtration Rate 39 (60-); Glucose, Blood 152 mg/dL (70-99); Potassium, Blood 4.1 mmol/L (3.5-5.5); Sodium, Blood 144 mmol/L (136-145); Troponin I <0.015 ng/mL (0.000-0.040)
[2021-04-08 12:50] LABS: Mean Platelet Volume 10.8 fL (9.1-12.4); Platelet Count 90 K/mm3 (150-400)
[2021-04-08 12:50] LABS: Calcium, Ionized (POC) 1.22 mmol/L (1.10-1.46); Chloride (POC) 111 mmol/L (98-108); Creatinine (POC) 1.3 mg/dL (0.6-1.0); Glucose (ISTAT POC) 141 mg/dL (70-99); Hemoglobin (POC) 7.5 g/dL (12.0-16.0); Potassium (POC) 4.7 mmol/L (3.5-5.5); Sodium (POC) 145 mmol/L (135-148); Total CO2 (POC) 25 mmol/L (21-32)
[2021-04-08] MEDS ORDERED: POTA10T PO (12:57)
[2021-04-08] MEDS ORDERED: ATOR40TA PO (12:57)
[2021-04-08] MEDS ORDERED: GABA100 PO (12:58)
[2021-04-08] MEDS ORDERED: LOSA50 PO (12:58)
[2021-04-08] MEDS ORDERED: Mirapex1.5 MG PO (12:58)
[2021-04-08] MEDS ORDERED: EUTHYROX50 MCG PO (12:59)
[2021-04-08] MEDS ORDERED: CITALOPRAM HBR10 MG PO (12:59)
[2021-04-08] MEDS ORDERED: Lopressor 25 mg25 MG PO (12:59)
[2021-04-08] MEDS ORDERED: PANT40 PO (12:59)
[2021-04-08] MEDS ORDERED: TORSE20 PO (14:29)
[2021-04-08] MEDS ORDERED: ARANESP25 MCG/0.1 SC (14:30)
--- NOTE | 2021-04-08 15:12 | NUR ---
echocardiogram completed
[2021-04-08] MEDS ORDERED: NITR.4SL SL (16:28)
--- NOTE | 2021-04-08 18:40 | NUR ---
SHIFT NOTE PT WITH 1ST UNIT OF PRBC INFUSING NOWW. PT DENIES SOB OR CP. NSR NOTED ON MONITOR WITHOUT ST ELEVATION OR DEPRESSION. PT RESTING WELL IN BED. VSS. PT HAS ATE A GOOD PORTION OF HER DINNER TRAY. PT ON AND OFF OF BEDPAN.
--- NOTE | 2021-04-09 05:45 | NUR ---
SHIFT SUMMARY PT RECEIVED 2 UNITS OF PACKED RED BLOOD CELLS. TOLERATED PROCEDURE, VSS. PT C/O PAIN IN HER LOWER BACK AND ALSO BACK OF HER KNEES THAT WAS RELATED TO USING THE BEDPAN. TREATED WITH HEAT PAD, LIGHT MASSAGE AND GIVEN TYLENOL PER ORDERS, SEE EMAR. PT REMAINED MONITORED BY TELEMETRY, SINUS IN THE 80'S.PT A&O X 4. CALL LIGHT IN HAND, WILL CONTINUE TO MONITOR.
[2021-04-09 07:27] LABS: BASOPHILS ABSOLUTE AUTO 0.02 K/mm3 (0.00-0.23); BASOPHILS PERCENT AUTO 0 % (0-2); EOSINOPHILS ABSOLUTE AUTO 0.06 K/mm3 (0.00-0.68); EOSINOPHILS PERCENT AUTO 1 % (0-6); Hematocrit 25.6 % (33.0-51.0); Hemoglobin 8.1 g/dL (11.5-16.0); IMMATURE GRAN ABSOLUTE AUTO 0.02 K/mm3 (0.00-0.10); IMMATURE GRAN PERCENT AUTO 0 % (0-1); LYMPHOCYTES ABSOLUTE AUTO 0.55 K/mm3 (0.84-5.20); LYMPHOCYTES PERCENT AUTO 10 % (21-46); MONOCYTES ABSOLUTE AUTO 0.52 K/mm3 (0.16-1.47); MONOCYTES PERCENT AUTO 10 % (4-13); Mean Corpuscular HGB 31.3 pg (26.0-34.0); Mean Corpuscular HGB Conc 31.6 g/dL (31.5-36.5); Mean Platelet Volume 10.7 fL (9.1-12.4); NEUTROPHILS ABSOLUTE AUTO 4.18 K/mm3 (1.96-9.15); NEUTROPHILS PERCENT AUTO 78 % (41-73); Platelet Count 86 K/mm3 (150-400); RDW Coefficient Variation 20.8 % (11.7-14.2); RDW Standard Deviation 74.3 fL (35.1-46.3); Red Blood Cell Count 2.59 M/mm3 (3.80-5.20); White Blood Cell Count 5.35 K/mm3 (4.00-11.30)
[2021-04-09 07:38] LABS: Mean Corpuscular Volume 99 fL (80-100)
[2021-04-09 07:58] LABS: Albumin, Blood 2.7 g/dL (3.4-5.0); Albumin/Globulin Ratio 0.9 (0.8-1.8); Bilirubin, Total 1.2 mg/dL (0.1-1.0); Bun/Creatinine Ratio 25.9 (12.0-20.0); Calcium, Blood 8.3 mg/dL (8.5-10.1); Creatinine, Blood 1.43 mg/dL (0.40-1.00); Globulin, Blood 3.1 g/dL (2.2-4.0); Potassium, Blood 4.1 mmol/L (3.5-5.5); Thyroid Stimulating Hormone 3.37 uIU/mL (0.360-4.800); Total Protein, Blood 5.8 g/dL (6.4-8.2)
--- NOTE | 2021-04-09 15:04 | NUR ---
Pt review of symptoms, she presented her daily routine of turning in her chair and how she sits alsmot folded over. She still uses walker with great difficulty she washers her hair in her isnk with great difficulty. She is having more spasms in her legs. She has significant hip and back pain. Whe we reviewed her medications she stated she does not take them routinely or as prescribed. We reviewed hospice and she thought that it would be beneficial. She was a bit tenattive and wanted to keep changint the subject. Advised how her quality of life could improve. Offered them some time to talk about it and think about it. Family states she falls asleep easily and gets fatigued more. will update health care marketing specialist and hoefully get a hospice plan in place. pt pps scoe is 30%
--- NOTE | 2021-04-09 16:30 | NUR ---
Update 04/09/21: Per chart review with Dr. Daniel this am, Pt. might benefit from hospice services or home health if not hospice. Call to palliative care nurse Charu. She will make a patient a priority and go in to visit with her and her family soon.
--- NOTE | 2021-04-09 17:57 | NUR ---
SHIFT NOTE PT IS CURRENTLY DECLINING HOSPICE, PT AND FAMILY MET WITH PALLIATIVE CARE NURSE TODAY. PT AND FAMILY PROVIDED WITH EXTENSIVE HOSPICE EDUCATION. PT WAS TREATED WITH MORPHINE THIS AM FOR BILAT LEG PAIN AND HAS REMAINED COMFORTABLE T/O THE DAY. TROPONIN IS TRENDING DOWN. OTHERWISE THERE ARE NO ACUTE CHANGES THIS SHIFT
--- NOTE | 2021-04-09 18:20 | NUR ---
Other family in called back to review hospice again. PT daughter confussed about going home today. Pt told them she could go home. We reviewed hospice again and gave them some literature. Pt want to speak with doctor Banks who knows her best struggling with acceptance.
--- NOTE | 2021-04-09 18:23 | NUR ---
LOPRESSOR HELD FOR HR OF 52
--- NOTE | 2021-04-10 04:17 | NUR ---
SHIFT SUMMARY PATIENT IS ALERT AND ORIENTED X4. 1 PERSON ASSIST WITH REPOSITIONING. COOPERATIVE WITH CARE. PATIENT USES BEDPAN, UNABLE TO HAVE BM THROUGHOUT SHIFT. PATIENT ASKING ABOUT HOSPICE CARE, WILL PASS ON TO DAY SHIFT RN. 02 SATS 95% ON 3L VIA NC. VSS, NO ACUTE CHANGES. CALL LIGHT IN REACH.
[2021-04-10 12:47] LABS: BASOPHILS ABSOLUTE AUTO 0.02 K/mm3 (0.00-0.23); BASOPHILS PERCENT AUTO 1 % (0-2); EOSINOPHILS ABSOLUTE AUTO 0.08 K/mm3 (0.00-0.68); EOSINOPHILS PERCENT AUTO 2 % (0-6); Hematocrit 24.1 % (33.0-51.0); Hemoglobin 7.5 g/dL (11.5-16.0); IMMATURE GRAN ABSOLUTE AUTO 0.01 K/mm3 (0.00-0.10); IMMATURE GRAN PERCENT AUTO 0 % (0-1); LYMPHOCYTES ABSOLUTE AUTO 0.43 K/mm3 (0.84-5.20); LYMPHOCYTES PERCENT AUTO 12 % (21-46); MONOCYTES ABSOLUTE AUTO 0.42 K/mm3 (0.16-1.47); MONOCYTES PERCENT AUTO 11 % (4-13); Mean Corpuscular HGB 31.6 pg (26.0-34.0); Mean Corpuscular HGB Conc 31.1 g/dL (31.5-36.5); Mean Corpuscular Volume 102 fL (80-100); Mean Platelet Volume 10.6 fL (9.1-12.4); NEUTROPHILS ABSOLUTE AUTO 2.72 K/mm3 (1.96-9.15); NEUTROPHILS PERCENT AUTO 74 % (41-73); Platelet Count 90 K/mm3 (150-400); RDW Coefficient Variation 19.9 % (11.7-14.2); RDW Standard Deviation 72.8 fL (35.1-46.3); Red Blood Cell Count 2.37 M/mm3 (3.80-5.20); White Blood Cell Count 3.68 K/mm3 (4.00-11.30)
[2021-04-10 14:02] LABS: Stool Occult Blood Guaiac 1 Pos (Neg)
--- NOTE | 2021-04-10 18:20 | NUR ---
PT D/C HOME WITH FAMILY TO HOSPICE. [facility] HAS ARRIVED WITH O2 FOR TRANSPORT HOME. PT AND FAMILY EXPRESSED UNDERSTANDING OF DC TEACHING. STATE THAT QUESTIONS WERE ANSWERED. FAMILY ASKED ABOUT MEAL DELIVERY SERVICES SUGGESTED MEALS ON WHEELS. IVs REMOVED AND PRESSURE DRESSED
--- NOTE | 2021-04-10 18:24 | NUR ---
Multiple conversations today about going home and a safe plan pt really wants to go home. Review of pt with doctor carter and a plan of care for [facility]. updated dung priceitalsneha and dr cardona called patient. arranged for oxygen delivery. fajosefa feels they can manage. Encouraged her to stay as safest plan for monday. she has slots of support and feels she is at [place] but want oxygen for comfort. She has been refusing pain medication as she feels her symtoms are minimal. Review with nursing and family again they feel risk of low and manageable will follow up tomorrow. packet sent to [facility] consult placed.
== END 2021-04-10 18:38 | disposition home or self-care (01) | DRG 281 ==
LOC: ER 11:23 → PCU 14:17
PROVIDERS: Emergency Medicine; Internal Medicine; Physician Assistant; ADMIT Family Medicine
PROC: 30233N1 Transfusion of Nonautologous Red Blood Cells into Peripheral Vein, Percutaneous Approach (ICD-10-PCS; principal; 2021-04-08)
DX: I35.0 Nonrheumatic aortic (valve) stenosis (principal); I21.A1 Myocardial infarction type 2; D62 Acute posthemorrhagic anemia; C90.00 Multiple myeloma not having achieved remission; I50.32 Chronic diastolic (congestive) heart failure; D61.818 Other pancytopenia; Z66 Do not resuscitate; D46.9 Myelodysplastic syndrome, unspecified; D63.1 Anemia in chronic kidney disease; N18.30 Chronic kidney disease, stage 3 unspecified; E78.5 Hyperlipidemia, unspecified; I25.10 Atherosclerotic heart disease of native coronary artery without angina pectoris; I27.20 Pulmonary hypertension, unspecified; K21.9 Gastro-esophageal reflux disease without esophagitis; E03.9 Hypothyroidism, unspecified; G25.81 Restless legs syndrome; E55.9 Vitamin D deficiency, unspecified; M41.9 Scoliosis, unspecified; F32.9 Major depressive disorder, single episode, unspecified; I73.9 Peripheral vascular disease, unspecified; M19.90 Unspecified osteoarthritis, unspecified site; G47.33 Obstructive sleep apnea (adult) (pediatric); Z95.1 Presence of aortocoronary bypass graft; Z90.89 Acquired absence of other organs; Z90.710 Acquired absence of both cervix and uterus; Z98.890 Other specified postprocedural states; Z79.899 Other long term (current) drug therapy
CPT/HCPCS: 36415; 36430; 71045; 80047; 80053; 82272; 83735; 83880; 84443; 84484; 85014; 85025; 86850; 86870; 86900; 86901; 86922; 93005; 93010; 93308; 93321; 99285-25; A9270; C9113; J1940; J2270; J7030; J7050; P9016